=== PATIENT | female | born 1955 | race Caucasian/White ===

== ENCOUNTER 2019-12-15 04:39 | Emergency (ER) | payer MEDICARE ==
[2019-12-15 06:10] LABS: ABSOLUTE EOSINOPHILS # (AUTO) 0.1 10^3/uL (0.0-0.6); ABSOLUTE MONOCYTES (AUTO) 0.2 10^3/uL (0.1-1.4); ABSOLUTE NEUT (AUTO) 1.3 10^3/uL (1.7-8.2); BASOPHILS % (AUTO) 0.3 % (0-2); HEMATOCRIT 32.1 % (36.0-47.0); HEMOGLOBIN 10.9 g/dL (12.0-15.5); LYMPHOCYTES % (AUTO) 38.1 % (13-45); MEAN CORPUSCULAR HEMOGLOBIN 31.2 pg (27.0-33.4); MEAN CORPUSCULAR HGB CONC 34.1 g/dL (32.0-36.0); MEAN CORPUSCULAR VOLUME 91 fl (80-97); MONOCYTES % (AUTO) 7.6 % (3-13); RED BLOOD COUNT 3.51 10^6/uL (3.72-5.28); RED CELL DISTRIBUTION WIDTH 14.7 % (11.5-14.0); TOTAL CELLS COUNTED % (AUTO) 100 %; WHITE BLOOD COUNT 2.6 10^3/uL (4.0-10.5)
[2019-12-15 06:23] LABS: ALBUMIN 3.3 g/dL (3.5-5.0); ALKALINE PHOSPHATASE 133 U/L (38-126); ANION GAP 6 (5-19); ASPARTATE AMINO TRANSFERASE 37 U/L (14-36); BILIRUBIN,DIRECT 0.1 mg/dL (0.0-0.4); BILIRUBIN,TOTAL 1.4 mg/dL (0.2-1.3); BLOOD UREA NITROGEN 26 mg/dL (7-20); CALCIUM 9.7 mg/dL (8.4-10.2); CARBON DIOXIDE 23 mmol/L (22-30); CHLORIDE 110 mmol/L (98-107); GLUCOSE 79 mg/dL (75-110); POTASSIUM 4.1 mmol/L (3.6-5.0); TOTAL PROTEIN 6.2 g/dL (6.3-8.2)
[2019-12-15 06:25] LABS: ACETAMINOPHEN < 10 ug/mL (10-30); ALCOHOL < 10 mg/dL (NONE DETECTED); SALICYLATE < 1.0 mg/dL (2.0-20.0)
[2019-12-15 06:39] LABS: PLATELET COUNT 71 10^3/uL (150-450)
--- NOTE | 2019-12-15 07:01 | ER Document Report ---
ED General - General Chief Complaint: Psych Problem Stated Complaint: AUDITORY AND VISUAL HALLUCINATION Time Seen by Provider: 12/15/19 06:48 Mode of Arrival: Medic Information source: Patient TRAVEL OUTSIDE OF THE [place] IN LAST 30 DAYS: No - HPI Onset: Other - over the last few days Onset/Duration: Gradual Quality of pain: No pain Severity: Moderate Pain Level: 0 Associated symptoms: Other - auditory hallucinations tell her about and sex Exacerbated by: Denies Relieved by: Denies Similar symptoms previously: No Recently seen / treated by doctor: No Notes: 64 year old female with a history of Nonalcoholic Cirrhosis, HTN, HLD, DM, Asthma, CKD, Cirrhosis, GERD, Depression here in the ER for several days. The patient denies alcohol or drug use or head trauma. The patient has never had hallucinations before. The patient has a history of depression but otherwise she denies a psych history. - Related Data Allergies/Adverse Reactions: No Known Allergies Allergy (Verified 07/03/16 12:38) Home Medications: Klor-con 10mEq. Meclizine 25mg 2 pills twice a day. Gabapentin 300mg 2 pills twice a day. Verapamil Hcl 180mg. Atorvastatin 10mg. Lisinopril 10mg. Fluoxetine 40mg. Pantoprazole 40mg. Furosemide 20mg. Lantus 20 units Past Medical History - General Information source: Patient - Social History Smoking Status: Never Smoker Frequency of alcohol use: None Drug Abuse: None Lives with: Alone - but has a daughter around to help Family History: Reviewed & Not Pertinent Patient has suicidal ideation: No Patient has homicidal ideation: No - but voices are telling her to possibly be violent - Past Medical History Cardiac Medical History: Reports: Hx Hypercholesterolemia, Hx Hypertension Denies: Hx Coronary Artery Disease, Hx Heart Attack Pulmonary Medical History: Reports: Hx Asthma Denies: Hx Bronchitis, Hx COPD, Hx Pneumonia, Hx Tuberculosis Neurological Medical History: Denies: Hx Cerebrovascular Accident, Hx Seizures Endocrine Medical History: Reports: Hx Diabetes Mellitus Type 2 Renal/ Medical History: Reports: Hx End Stage Renal Disease GI Medical History: Reports: Hx Cirrhosis, Hx Gastroesophageal Reflux Disease Musculoskeletal Medical History: Reports Hx Arthritis Psychiatric Medical History: Reports: Hx Depression Past Surgical History: Reports: Hx Appendectomy, Hx Cholecystectomy - lap, Hx Hysterectomy. Denies: Hx Pacemaker - Immunizations Hx Diphtheria, Pertussis, Tetanus Vaccination: Yes Hx Pneumococcal Vaccination: 09/17/12 Review of Systems - Review of Systems Constitutional: No symptoms reported EENT: No symptoms reported Cardiovascular: No symptoms reported Respiratory: No symptoms reported Gastrointestinal: No symptoms reported Genitourinary: No symptoms reported Female Genitourinary: No symptoms reported Musculoskeletal: No symptoms reported Skin: No symptoms reported Hematologic/Lymphatic: No symptoms reported Neurological/Psychological: Hallucinations - auditory -: Yes All other systems reviewed and negative Physical Exam - Vital signs Vitals: Temp 97.9 F 12/15/19 04:40 - Notes Notes: GENERAL: Well-appearing, well-nourished and in no acute distress. HEAD: Atraumatic, normocephalic. EYES: Pupils equal round and reactive to light, extraocular movements intact, sclera anicteric, conjunctiva are normal. ENT: External ears normal, nares patent, oropharynx clear without exudates. Moist mucous membranes. NECK: Normal range of motion, supple without lymphadenopathy or JVD. LUNGS: Breath sounds clear to auscultation bilaterally and equal. No wheezes rales or rhonchi. HEART: Regular rate and rhythm without murmurs, rubs or gallops. ABDOMEN: Soft, nontender, normoactive bowel sounds. No guarding, no rebound. No masses appreciated. EXTREMITIES: Normal range of motion, no pitting or edema. No clubbing or cyanosis. NEUROLOGICAL: Cranial nerves II through XII grossly intact. Normal speech, normal gait. PSYCH: Normal mood, normal affect. SKIN: Warm, Dry, normal turgor, no rashes or lesions noted. Course - Re-evaluation Re-evalutation: 12/15/19 09:41 The patient has been having auditory hallucinations. Patient has known liver disease and her Ammonia level is in the 70s today. Patient also has a possible mild UTI which could be contributing. Will culture urine but treat with 5 days of Macrobid. I called the patient's daughter and explained to her that the patient's hallucinations are likely due to hepatic encephalopthy and a mild UTI could also be contributing. Patient already has lactulose at home accoridng to her daughter. Patient's daughter told to have patient follow up with her PCP. The patient has a metabolic reason to be hallucinating some so no need for psych consult today. - Vital Signs Vital signs: Temp Pulse Resp BP Pulse Ox 97.8 F 70 20 118/64 96 12/15/19 08:39 12/15/19 08:39 12/15/19 08:39 12/15/19 08:39 12/15/19 08:39 - Laboratory Result Diagrams: 12/15/19 05:35 12/15/19 05:47 Laboratory results interpreted by me: 12/15/19 12/15/19 12/15/19 05:35 05:47 07:25 WBC 2.6 L RBC 3.51 L Hgb 10.9 L Hct 32.1 L RDW 14.7 H Plt Count 71 L Absolute Neuts (auto) 1.3 L Chloride 110 H BUN 26 H Creatinine 1.81 H Est GFR ( Amer) 34 L Est GFR (MDRD) Non-Af 28 L Total Bilirubin 1.4 H AST 37 H Alkaline Phosphatase 133 H Ammonia 70.1 H Total Protein 6.2 L Albumin 3.3 L Urine Urobilinogen Salicylates < 1.0 L Acetaminophen < 10 L 12/15/19 07:50 WBC RBC Hgb Hct RDW Plt Count Absolute Neuts (auto) Chloride BUN Creatinine Est GFR ( Amer) Est GFR (MDRD) Non-Af Total Bilirubin AST Alkaline Phosphatase Ammonia Total Protein Albumin Urine Urobilinogen 4.0 H Salicylates Acetaminophen - Diagnostic Test Radiology reviewed: Image reviewed, Reports reviewed - EKG Interpretation by Me EKG shows normal: Sinus rhythm, Intervals, QRS Complexes, ST-T Waves Rate: Normal Rhythm: NSR [place]/QRS: Left axis deviation Discharge - Discharge Clinical Impression: Hepatic encephalopathy UTI (urinary tract infection) Qualifiers: Urinary tract infection type: site unspecified Hematuria presence: without hematuria Qualified Code(s): N39.0 - Urinary tract infection, site not specified Condition: Stable Disposition: HOME, SELF-CARE Instructions: Urinary Tract Infection ([facility]), Hepatic Encephalopathy ([facility]) Additional Instructions: Take Lactulose several times a day until you have a couple formed bowel movements a day. Also take Macrobid as prescribed for a possible UTI. Follow up with your primary care doctor and tell him/her you were in the ER and had blood work an a CT scan. Your Ammonia level was elevated at 70.1. Prescriptions: Nitrofurantoin Monohyd/M-Cryst [Macrobid 100 mg Capsule] 100 mg PO BID 5 Days #10 cap
--- NOTE | 2019-12-15 07:26 | RADIOLOGY REPORT (SQ) ---
CLINICAL HISTORY: eval for cause of hallucinations and AMS COMPARISON: None. TECHNIQUE: CT HEAD WITHOUT IV CONTRAST on 12/15/2019 6:54 AM CDT This exam was performed according to our departmental dose-optimization program, which includes automated exposure control, adjustment of the mA and/or kV according to patient size and/or use of iterative reconstruction technique. FINDINGS: There is no acute hemorrhage, mass effect or midline shift. Bustos-white differentiation is preserved. There is no hydrocephalus. There is no significant volume loss for age. There are mild patchy hypodensities within the periventricular and subcortical white matter, consistent with microangiopathic ischemic changes. The calvarium is intact. Orbits and globes are unremarkable. The paranasal sinuses are clear. Mastoid air cells are clear. IMPRESSION: No acute intracranial findings.
[2019-12-15 08:11] LABS: APPEARANCE,URINE CLEAR; BILIRUBIN,URINE NEGATIVE (NEGATIVE); COLOR,URINE YELLOW; GLUCOSE, URINE NEGATIVE (NEGATIVE); KETONES,URINE NEGATIVE (NEGATIVE); LEUKOCYTE ESTERASE,URINE NEGATIVE (NEGATIVE); NITRITE,URINE NEGATIVE (NEGATIVE); PROTEIN,URINE NEGATIVE (NEGATIVE); URINE SPECIFIC GRAVITY 1.016
[2019-12-15 08:20] LABS: ADD MANUAL MICROSCOPIC YES
[2019-12-15 08:33] LABS: BACTERIA,URINE 4+ /HPF
[2019-12-15 08:48] LABS: URINE AMPHETAMINES SCREEN NEGATIVE; URINE BARBITURATES SCREEN NEGATIVE; URINE BENZODIAZEPINES SCREEN NEGATIVE; URINE COCAINE SCREEN NEGATIVE; URINE MARIJUANA (THC) SCREEN NEGATIVE; URINE METHADONE SCREEN NEGATIVE; URINE PHENCYCLIDINE SCREEN NEGATIVE
[2019-12-15 11:07] VITALS: BP 110/41
--- NOTE | 2019-12-15 11:11 | EKG REPORT ---
SEVERITY:- BORDERLINE ECG - SINUS RHYTHM BORDERLINE LEFT AXIS DEVIATION BORDERLINE T ABNORMALITIES, ANT-LAT LEADS : Confirmed by: Lawanda Garber MD 15-Dec-2019 11:10:41
== END 2019-12-15 11:07 | disposition home or self-care (01) ==
LOC: ER 04:39
DX: K72.90 Hepatic failure, unspecified without coma (principal); N39.0 Urinary tract infection, site not specified; R44.0 Auditory hallucinations; R44.1 Visual hallucinations; Z79.899 Other long term (current) drug therapy; Z79.84 Long term (current) use of oral hypoglycemic drugs; F32.9 Major depressive disorder, single episode, unspecified; I12.9 Hypertensive chronic kidney disease with stage 1 through stage 4 chronic kidney disease, or unspecified chronic kidney disease; E11.22 Type 2 diabetes mellitus with diabetic chronic kidney disease; N18.9 Chronic kidney disease, unspecified; J45.909 Unspecified asthma, uncomplicated
CPT/HCPCS: 36415; 70450; 80053; 80307; 81001; 82140; 82962; 84443; 85025; 93005; 93010; 99285

== ENCOUNTER 2019-12-15 22:45 | Inpatient (IN) | payer MEDICARE, OTHER ==
--- NOTE | 2019-12-16 01:22 | ER Document Report ---
ED General - General Chief Complaint: Fall Stated Complaint: FALL Time Seen by Provider: 12/15/19 23:35 Notes: 64 year old female with h/o dm and cirrhosis lives at home with some grand daughter support and is back after being here this am. She has known ecephalopathy - hepatic - and a uti this am. After getting home her mental status is not improved, it has worsened. She reportedly - per daughter - thru herself out of the chair she was in this evening afraid someone was afterward. No fever or chills. Moved here from [place] a few months ago and just established care with [facility] recently. No chest pain and no sob. TRAVEL OUTSIDE OF THE [place] IN LAST 30 DAYS: No - Related Data Allergies/Adverse Reactions: No Known Allergies Allergy (Verified 07/03/16 12:38) Past Medical History - Social History Smoking Status: Unknown if Ever Smoked Family History: Reviewed & Not Pertinent Patient has homicidal ideation: No - Past Medical History Cardiac Medical History: Reports: Hx Hypercholesterolemia, Hx Hypertension Denies: Hx Coronary Artery Disease, Hx Heart Attack Pulmonary Medical History: Reports: Hx Asthma Denies: Hx Bronchitis, Hx COPD, Hx Pneumonia, Hx Tuberculosis Neurological Medical History: Denies: Hx Cerebrovascular Accident, Hx Seizures Endocrine Medical History: Reports: Hx Diabetes Mellitus Type 2 Renal/ Medical History: Reports: Hx End Stage Renal Disease GI Medical History: Reports: Hx Cirrhosis, Hx Gastroesophageal Reflux Disease Musculoskeletal Medical History: Reports Hx Arthritis Psychiatric Medical History: Reports: Hx Depression Past Surgical History: Reports: Hx Appendectomy, Hx Cholecystectomy - lap, Hx Hysterectomy. Denies: Hx Pacemaker - Immunizations Hx Diphtheria, Pertussis, Tetanus Vaccination: Yes Hx Pneumococcal Vaccination: 09/17/12 Review of Systems - Review of Systems Constitutional: No symptoms reported EENT: No symptoms reported Cardiovascular: No symptoms reported Respiratory: No symptoms reported Gastrointestinal: No symptoms reported Genitourinary: No symptoms reported Female Genitourinary: No symptoms reported Musculoskeletal: No symptoms reported Skin: No symptoms reported Hematologic/Lymphatic: No symptoms reported Neurological/Psychological: No symptoms reported Physical Exam - Vital signs Vitals: Temp 98.3 F 12/15/19 22:45 Interpretation: Normal - General General appearance: Appears well, Alert - HEENT Head: Normocephalic, Other - very small abrasion lateral to left lateral canthus. No sts. Approximatley 1-2 cm.. No: Atraumatic Eyes: Normal Pupils: PERRL - Respiratory Respiratory status: No respiratory distress Chest status: Nontender Breath sounds: Normal Chest palpation: Normal - Cardiovascular Rhythm: Regular Heart sounds: Normal auscultation Murmur: No - Abdominal Inspection: Normal Distension: No distension Bowel sounds: Normal Tenderness: Nontender Organomegaly: No organomegaly - Back Back: Normal, Nontender - Extremities General upper extremity: Normal inspection, Nontender, Normal color, Normal ROM, Normal temperature General lower extremity: Normal inspection, Nontender, Normal color, Normal ROM, Normal temperature, Normal weight bearing. No: Dominique's sign - Neurological Neuro grossly intact: Yes Cognition: Normal Orientation: AAOx4 [place] Coma Scale Eye Opening: Spontaneous [place] Coma Scale Verbal: Oriented [place] Coma Scale Motor: Obeys Commands [place] Coma Scale Total: 15 Speech: Normal Motor strength normal: LUE, RUE, LLE, RLE Sensory: Normal - Psychological Associated symptoms: Normal affect, Normal mood - Skin Skin Temperature: Warm Skin Moisture: Dry Skin Color: Normal Course - Vital Signs Vital signs: Temp Pulse Resp BP Pulse Ox 98.3 F 15 109/87 H 91 L 12/15/19 22:45 12/16/19 00:15 12/16/19 00:01 12/16/19 00:15 - Laboratory Result Diagrams: 12/15/19 22:52 12/15/19 22:52 Laboratory results interpreted by me: 12/15/19 12/15/19 22:52 22:52 Hct 35.7 L RDW 14.9 H Plt Count 99 L Chloride 110 H Carbon Dioxide 21 L BUN 24 H Creatinine 1.78 H Est GFR ( Amer) 35 L Est GFR (MDRD) Non-Af 29 L Glucose 115 H Total Bilirubin 1.7 H AST 48 H Alkaline Phosphatase 173 H Discharge - Discharge Clinical Impression: Hepatic encephalopathy, Thrombocytopenia UTI (urinary tract infection) Qualifiers: Urinary tract infection type: site unspecified Hematuria presence: with hematuria Qualified Code(s): N39.0 - Urinary tract infection, site not specified Condition: Stable Disposition: ADMITTED OBSERVATION Admitting Provider: Janusz (Hospitalist) Unit Admitted: Medical Floor
[2019-12-16] MEDS ORDERED: LACTULOSE SYRUP 20 GM/30 ML UDCUP PO ONE (01:24)
[2019-12-16] MEDS ORDERED: CEFTRIAXONE 1 GM/D5W RTU 1 GM/50 ML RTUPB IV ONE (01:29)
[2019-12-16 01:42] LABS: ABSOLUTE EOSINOPHILS # (AUTO) 0.1 10^3/uL (0.0-0.6); ABSOLUTE LYMPHOCYTES (AUTO) 1.3 10^3/uL (0.5-4.7); ABSOLUTE MONOCYTES (AUTO) 0.3 10^3/uL (0.1-1.4); ABSOLUTE NEUT (AUTO) 2.2 10^3/uL (1.7-8.2); BASOPHILS % (AUTO) 0.7 % (0-2); EOSINOPHILS % (AUTO) 2.7 % (0-6); HEMATOCRIT 35.7 % (36.0-47.0); HEMOGLOBIN 12.1 g/dL (12.0-15.5); LYMPHOCYTES % (AUTO) 33.8 % (13-45); MEAN CORPUSCULAR HEMOGLOBIN 31.2 pg (27.0-33.4); MEAN CORPUSCULAR HGB CONC 33.8 g/dL (32.0-36.0); MEAN CORPUSCULAR VOLUME 92 fl (80-97); MONOCYTES % (AUTO) 6.6 % (3-13); RED BLOOD COUNT 3.87 10^6/uL (3.72-5.28); RED CELL DISTRIBUTION WIDTH 14.9 % (11.5-14.0); SEGMENTED NEUTROPHILS % (AUTO) 56.2 % (42-78); TOTAL CELLS COUNTED % (AUTO) 100 %
[2019-12-16 01:45] LABS: ALBUMIN 3.8 g/dL (3.5-5.0); ALKALINE PHOSPHATASE 173 U/L (38-126); ANION GAP 8 (5-19); ASPARTATE AMINO TRANSFERASE 48 U/L (14-36); BILIRUBIN,DIRECT 0.4 mg/dL (0.0-0.4); BILIRUBIN,TOTAL 1.7 mg/dL (0.2-1.3); BLOOD UREA NITROGEN 24 mg/dL (7-20); CALCIUM 10.1 mg/dL (8.4-10.2); CARBON DIOXIDE 21 mmol/L (22-30); CHLORIDE 110 mmol/L (98-107); GLUCOSE 115 mg/dL (75-110); POTASSIUM 3.9 mmol/L (3.6-5.0)
[2019-12-16 02:00] LABS: PLATELET COUNT 99 10^3/uL (150-450)
--- NOTE | 2019-12-16 03:58 | RADIOLOGY REPORT (SQ) ---
EXAM DESCRIPTION: CT LUMBAR SPINE WITHOUT IV CONTRAST COMPLETED DATE/TME: 12/16/2019 01:14 CLINICAL HISTORY: 64 years, Female, fall/ pain.states that she was sitting in her chair and slid out of chair COMPARISON: CT abdomen/pelvis from 07/03/2016 TECHNIQUE: 337 Images stored on PACS. All CT scanners at this facility use dose modulation, iterative reconstruction, and/or weight based dosing when appropriate to reduce radiation dose to as low as reasonably achievable (ALARA). [facility]: Dose Right [facility]: CareDose [facility]: Dose Right [facility]: Teradose 4D [facility]: Companion Canine LIMITATIONS: None. FINDINGS: Evaluation of spinal canal contents limited due to CT technique. 5 lumbar type vertebral bodies, for the purposes of this exam. Age-indeterminate compression fractures of L5, L3, L2, L1, T12, T11. Maximum loss of height is associated with the central L3 vertebral body, where there is approximately 60-70% loss of height. No CT evidence for retropulsed fracture fragment. Limited evaluation of extraspinal anatomic structures is grossly unremarkable. The compression fracture deformities are new from Nov [address] evidence for central canal stenosis. Pars defects at the L5-S1 level without spondylolisthesis. Facet arthropathy L4-5 and L5-S1. Vacuum disc phenomenon at multiple levels. IMPRESSION: Age-indeterminate compression fractures of T11, T12, L1, L2, L3, L5. No retropulsed fracture fragment or CT evidence for significant central canal stenosis. 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 TECHNICAL DOCUMENTATION: Quality ID # 436: Final reports with documentation of one or more dose reduction techniques (e.g., Automated exposure control, adjustment of the mA and/or kV according to patient size, use of iterative reconstruction technique) copyright 2010 [employer]- All Rights Reserved
[2019-12-16] MEDS ORDERED: MAG HYDROX/AL HYDROX/SIMETH SUSP 30 ML UDCUP PO PRN (04:08)
[2019-12-16] MEDS ORDERED: IPRATROPIUM/ALBUTEROL 0.5-2.5 MG/3 ML AMPUL NEB PRN (04:08)
[2019-12-16] MEDS ORDERED: GLUCAGON,HUMAN RECOMB 1 MG INJ IM PRN (04:08)
[2019-12-16] MEDS ORDERED: DEXTROSE 40% GEL 15 GM TUBE PO PRN ×2 (04:08)
[2019-12-16] MEDS ORDERED: DEXTROSE 50%-WATER 25 GM/50 ML DISP.SYRIN IV PRN ×2 (04:08)
[2019-12-16] MEDS ORDERED: NORMAL SALINE 1000 ML 1,000 ML IV PRN (04:15)
[2019-12-16 04:42] LABS: APPEARANCE,URINE CLEAR; BILIRUBIN,URINE NEGATIVE (NEGATIVE); COLOR,URINE YELLOW; GLUCOSE, URINE NEGATIVE (NEGATIVE); KETONES,URINE NEGATIVE (NEGATIVE); LEUKOCYTE ESTERASE,URINE NEGATIVE (NEGATIVE); NITRITE,URINE NEGATIVE (NEGATIVE); PROTEIN,URINE NEGATIVE (NEGATIVE); URINE SPECIFIC GRAVITY 1.011
[2019-12-16 04:57] LABS: PHOSPHORUS 3.1 mg/dL (2.5-4.5)
[2019-12-16] MEDS: HEPARIN SOD (PORCINE) 5,000 UNIT/ML 1 ML VIAL SUBCUT SCH ×3 (06:12→23:27)
--- NOTE | 2019-12-16 06:22 | PDOC H&P ---
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 She presents with 48 hours of confusion including hallucinations and delusion of persecution. She threw herself from her chair to the floor in an attempt to escape perceived capture. In the emergency department she is found to have persistent confusion and delusion, thrombocytopenia and CKD at baseline. She received lactulose and referred to the hospitalist for admission. She is a poor historian unable to provide additional history. CT lumbar spine notable for several compression fractures of uncertain chronicity however patient denies back pain. Past Medical History Cardiac Medical History: Reports: Hyperlipidema, Hypertension Denies: Coronary Artery Disease, Myocardial Infarction Pulmonary Medical History: Reports: Asthma Denies: Bronchitis, Chronic Obstructive Pulmonary Disease (COPD), Pneumonia, Tuberculosis Neurological Medical History: Denies: Seizures Endocrine Medical History: Reports: Diabetes Mellitus Type 2 Renal/ Medical History: Reports: End Stage Renal Disease GI Medical History: Reports: Cirrhosis, Gastroesophageal Reflux Disease Musculoskeltal Medical History: Reports: Arthritis Psychiatric Medical History: Reports: Depression Hematology: Denies: Anemia Past Surgical History Past Surgical History: Reports: Appendectomy, Cholecystectomy - lap, Hysterectomy Denies: Pacemaker Social History Information Source: Emergency Med Personnel, [facility] Records Lives with: Family Smoking Status: Unknown if Ever Smoked Frequency of Alcohol Use: None Hx Recreational Drug Use: No Drugs: None Hx Prescription Drug Abuse: No - Advance Directive Resuscitation Status: Full Code Family History Family History: Other - Unobtainable. denies: Reviewed & Not Pertinent - Unobtainable Parental Family History Reviewed: No - Unobtainable Children Family History Reviewed: No - Unobtainable Sibling(s) Family History Reviewed.: No - Unobtainable Medication/Allergy Home Medications: Atorvastatin Calcium [Lipitor 10 mg Tablet] 10 mg PO QHS 12/15/19 Fluoxetine HCl 40 mg PO DAILY 12/15/19 Furosemide [Lasix] 20 mg PO DAILY 12/15/19 Gabapentin 600 mg PO BID 12/15/19 Insulin Glargine,Hum.rec.anlog [Lantus Insulin 100 Unit/mL Insulin Pen] 70 units SUBCUT QHS 12/15/19 Lisinopril [Prinivil] 10 mg PO DAILY 12/15/19 Meclizine HCl 50 mg PO BID 12/15/19 Nitrofurantoin Monohyd/M-Cryst [Macrobid 100 mg Capsule] 100 mg PO BID 5 Days # 10 cap 12/15/19 Pantoprazole Sodium 40 mg PO DAILY 12/15/19 Potassium Chloride [Klor-Con 10 Meq Tablet ER] 10 meq PO DAILY 12/15/19 Tolterodine Tartrate [Detrol] 2 mg PO DAILY 12/15/19 Verapamil HCl [Verapamil ER] 180 mg PO DAILY 12/15/19 Allergies/Adverse Reactions: No Known Allergies Allergy (Verified 07/03/16 12:38) Review of Systems ROS unobtainable: Due to mental status Physical Exam Vital Signs: Temp Pulse Resp BP Pulse Ox 98.3 F 19 105/59 L 93 12/15/19 22:45 12/16/19 05:04 12/16/19 05:04 12/16/19 05:04 Intake & Output 12/14/19 12/15/19 12/16/19 11:59 11:59 11:59 Intake Total 50 Balance 50 Weight 102.3 kg General appearance: PRESENT: cooperative, disheveled, mild distress, morbidly obese Head exam: PRESENT: atraumatic, normocephalic Eye exam: PRESENT: conjunctiva pink, EOMI, PERRLA. ABSENT: scleral icterus Ear exam: PRESENT: normal external ear exam Mouth exam: PRESENT: moist, tongue midline Neck exam: ABSENT: carotid bruit, JVD, lymphadenopathy, thyromegaly Respiratory exam: PRESENT: clear to auscultation sandra. ABSENT: rales, rhonchi, wheezes Cardiovascular exam: PRESENT: RRR. ABSENT: diastolic murmur, rubs, systolic murmur Pulses: PRESENT: normal dorsalis pedis pul Vascular exam: PRESENT: normal capillary refill GI/Abdominal exam: PRESENT: ascites, diminished bowel sounds, hypoactive bowel sounds, soft. ABSENT: distended, firm, tenderness Rectal exam: PRESENT: deferred Extremities exam: PRESENT: full ROM. ABSENT: calf tenderness, clubbing, pedal edema Neurological exam: PRESENT: alert, altered, oriented to person, CN II-XII grossly intact. ABSENT: oriented to time, oriented to situation Psychiatric exam: PRESENT: anxious, unusual affect. ABSENT: appropriate affect Skin exam: PRESENT: dry, intact, warm. ABSENT: cyanosis, rash Results Laboratory Results: 12/15/19 22:52 12/15/19 22:52 12/15/19 12/15/19 12/16/19 22:52 22:52 03:18 WBC 4.0 RBC 3.87 Hgb 12.1 Hct 35.7 L MCV 92 MCH 31.2 MCHC 33.8 RDW 14.9 H Plt Count 99 L Seg Neutrophils % 56.2 Sodium 138.7 Potassium 3.9 Chloride 110 H Carbon Dioxide 21 L Anion Gap 8 BUN 24 H Creatinine 1.78 H Est GFR ( Amer) 35 L Glucose 115 H Calcium 10.1 Phosphorus Magnesium Total Bilirubin 1.7 H AST 48 H Alkaline Phosphatase 173 H Ammonia 39.2 H Total Protein 7.0 Albumin 3.8 TSH Urine Color Urine Appearance Urine pH Ur Specific [place] Urine Protein Urine Glucose (UA) Urine Ketones Urine Blood Urine Nitrite Ur Leukocyte Esterase Urine WBC (Auto) Urine RBC (Auto) 12/16/19 12/16/19 12/16/19 04:10 04:25 04:25 WBC RBC Hgb Hct MCV MCH MCHC RDW Plt Count Seg Neutrophils % Sodium Potassium Chloride Carbon Dioxide Anion Gap BUN Creatinine Est GFR ( Amer) Glucose Calcium Phosphorus 3.1 Magnesium 1.9 Total Bilirubin AST Alkaline Phosphatase Ammonia Total Protein Albumin TSH 1.43 Urine Color YELLOW Urine Appearance CLEAR Urine pH 5.0 Ur Specific [place] 1.011 Urine Protein NEGATIVE Urine Glucose (UA) NEGATIVE Urine Ketones NEGATIVE Urine Blood NEGATIVE Urine Nitrite NEGATIVE Ur Leukocyte Esterase NEGATIVE Urine WBC (Auto) 0 Urine RBC (Auto) 0 12/16/19 12/16/19 04:25 04:25 Creatine Kinase 35 Troponin I 0.015 Impressions: Lumbar Spine CT 12/16/19 01:14 IMPRESSION: Age-indeterminate compression fractures of T11, T12, L1, L2, L3, L5. No retropulsed fracture fragment or CT evidence for significant central canal stenosis. 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 TECHNICAL DOCUMENTATION: Quality ID # 436: Final reports with documentation of one or more dose reduction techniques (e.g., Automated exposure control, adjustment of the mA and/or kV according to patient size, use of iterative reconstruction technique) copyright 2011 [employer]- All Rights Reserved Assessment and Plan - Diagnosis (1) Hepatic encephalopathy Is this a current diagnosis for this admission?: Yes Plan: Lactulose 10 mg p.o. every 8 hours. Supportive measures. Discharge planning is likely unable to return to independent setting. (2) Thrombocytopenia Is this a current diagnosis for this admission?: Yes Plan: Anticipated secondary to Reeves and without complication, supportive care - Time Time Spent with patient: 25-34 minutes - Inpatient Certification Medical Necessity: Need Close Monitoring Due to Risk of Patient Decompensation
[2019-12-16] MEDS: INSULIN LISPRO 100 UNIT/ML 3 ML VIAL SUBCUT SCH ×3 (09:04→17:45)
[2019-12-16] MEDS ORDERED: INSULIN GLARGINE,HUM.REC.ANLOG 1,000 UNIT/10 ML VIAL SUBCUT SCH ×2 (10:00→12:00)
[2019-12-16] MEDS: DOCUSATE SODIUM 100 MG CAPSULE PO SCH ×2 (11:04→17:42)
[2019-12-16] MEDS: LACTULOSE SYRUP 20 GM/30 ML UDCUP PO SCH ×4 (11:04→23:26)
--- NOTE | 2019-12-16 19:12 | Progress Note ---
Provider Note Provider Note: 12/16/2019 [Patient currently. She is tired. She was up most of the evening. She was admitted earlier this morning. I did review the medication reconciliation. Some of her antihypertensive medications are on hold due to borderline blood pressure. The lactulose is helping. Repeat labs ordered for tomorrow.
[2019-12-16] MEDS: ATORVASTATIN CALCIUM 10 MG TABLET PO SCH (23:27)
[2019-12-16] MEDS: GABAPENTIN 300 MG CAPSULE PO SCH (23:27)
[2019-12-17] MEDS: PANTOPRAZOLE SODIUM 40 MG TABLET.DR PO SCH (06:01)
[2019-12-17] MEDS: HEPARIN SOD (PORCINE) 5,000 UNIT/ML 1 ML VIAL SUBCUT SCH (06:01)
[2019-12-17] MEDS: INSULIN LISPRO 100 UNIT/ML 3 ML VIAL SUBCUT SCH ×3 (07:00→17:39)
[2019-12-17 07:24] LABS: BLOOD UREA NITROGEN 21 mg/dL (7-20); CALCIUM 9.2 mg/dL (8.4-10.2); CHLORIDE 114 mmol/L (98-107); POTASSIUM 3.5 mmol/L (3.6-5.0)
[2019-12-17 07:28] LABS: GLUCOSE 48 mg/dL (75-110)
[2019-12-17 07:30] LABS: CARBON DIOXIDE 22 mmol/L (22-30)
[2019-12-17 07:32] LABS: ANION GAP 4 (5-19)
[2019-12-17] MEDS ORDERED: POTASSIUM CHLORIDE 10 MEQ TABLET.ER PO SCH (10:00)
[2019-12-17] MEDS ORDERED: INSULIN GLARGINE,HUM.REC.ANLOG 1,000 UNIT/10 ML VIAL SUBCUT SCH (10:00)
[2019-12-17 10:14] LABS: ABSOLUTE EOSINOPHILS # (AUTO) 0.1 10^3/uL (0.0-0.6); ABSOLUTE MONOCYTES (AUTO) 0.2 10^3/uL (0.1-1.4); ABSOLUTE NEUT (AUTO) 1.2 10^3/uL (1.7-8.2); BASOPHILS % (AUTO) 0.5 % (0-2); EOSINOPHILS % (AUTO) 2.1 % (0-6); HEMATOCRIT 30.4 % (36.0-47.0); HEMOGLOBIN 10.1 g/dL (12.0-15.5); LYMPHOCYTES % (AUTO) 41.3 % (13-45); MEAN CORPUSCULAR HEMOGLOBIN 31.1 pg (27.0-33.4); MEAN CORPUSCULAR HGB CONC 33.4 g/dL (32.0-36.0); MEAN CORPUSCULAR VOLUME 93 fl (80-97); MONOCYTES % (AUTO) 6.8 % (3-13); RED BLOOD COUNT 3.26 10^6/uL (3.72-5.28); RED CELL DISTRIBUTION WIDTH 14.5 % (11.5-14.0); SEGMENTED NEUTROPHILS % (AUTO) 49.3 % (42-78); TOTAL CELLS COUNTED % (AUTO) 100 %
[2019-12-17] MEDS: DOCUSATE SODIUM 100 MG CAPSULE PO SCH ×2 (10:18→17:46)
[2019-12-17] MEDS: GABAPENTIN 300 MG CAPSULE PO SCH ×2 (10:21→22:06)
[2019-12-17] MEDS: LACTULOSE SYRUP 20 GM/30 ML UDCUP PO SCH ×2 (10:21→17:46)
[2019-12-17] MEDS: FUROSEMIDE 20 MG TABLET PO SCH (10:21)
[2019-12-17] MEDS: FLUOXETINE HCL 20 MG CAPSULE PO SCH (10:21)
[2019-12-17] MEDS: VERAPAMIL HCL 180 MG TABLET.SA PO SCH (10:22)
[2019-12-17] MEDS: TOLTERODINE TARTRATE 1 MG TABLET PO SCH (10:22)
[2019-12-17 10:38] LABS: PLATELET COUNT 66 10^3/uL (150-450); WHITE BLOOD COUNT 2.5 10^3/uL (4.0-10.5)
--- NOTE | 2019-12-17 11:39 | PDOC PROGRESS REPORT ---
Subjective Progress Note for:: 12/17/19 Subjective:: Feeling slightly better. Complaining of right great toe pain. Also having frequent bowel movements due to lactulose. Reason For Visit: ENCEPHALOPATHY Physical Exam Vital Signs: Temp Pulse Resp BP Pulse Ox 98.2 F 70 18 110/36 L 95 12/17/19 07:32 12/17/19 07:32 12/17/19 07:32 12/17/19 07:32 12/17/19 07:32 Intake & Output 12/16/19 12/17/19 12/18/19 06:59 06:59 06:59 Intake Total 50 480 Output Total 0 Balance 50 480 Weight 102.3 kg 85.7 kg General appearance: PRESENT: cooperative, well-developed Head exam: PRESENT: atraumatic, normocephalic Eye exam: PRESENT: conjunctiva pink. ABSENT: scleral icterus Ear exam: PRESENT: normal external ear exam. ABSENT: bleeding, drainage Respiratory exam: PRESENT: clear to auscultation sandra, symmetrical, unlabored. ABSENT: prolonged expiratory phas, rales, rhonchi, tachypnea, wheezes Cardiovascular exam: PRESENT: RRR, +S1, +S2 GI/Abdominal exam: PRESENT: diminished bowel sounds, soft, other - Pendulous a bdomen. ABSENT: distended, guarding, tenderness Rectal exam: PRESENT: deferred Extremities exam: ABSENT: pedal edema Musculoskeletal exam: PRESENT: other - Examination of the right great toe reveals slight bunion. It is not tender in the metatarsal phalangeal joint. There is no tenderness under the metatarsal head or along the lateral aspect or dorsal aspect of the foot. Tenderness is at the tip of the toe. The toenail is ingrowing slightly medially. There is no purulent drainage. There is slight erythema. Neurological exam: PRESENT: alert, awake, oriented to person, oriented to place, oriented to situation Psychiatric exam: PRESENT: flat affect. ABSENT: agitated, anxious Results Laboratory Results: 12/17/19 09:06 12/17/19 06:30 12/17/19 12/17/19 12/17/19 06:30 06:30 06:30 WBC Cancelled RBC Cancelled Hgb Cancelled Hct Cancelled MCV Cancelled MCH Cancelled MCHC Cancelled RDW Cancelled Plt Count Cancelled Seg Neutrophils % Cancelled Sodium 139.9 Potassium 3.5 L Chloride 114 H Carbon Dioxide 22 Anion Gap 4 L BUN 21 H Creatinine 1.49 H Est GFR ( Amer) 42 L Glucose 48 L Calcium 9.2 Magnesium 1.9 Ammonia 18.1 12/17/19 09:06 WBC 2.5 L D RBC 3.26 L Hgb 10.1 L Hct 30.4 L MCV 93 MCH 31.1 MCHC 33.4 RDW 14.5 H Plt Count 66 L Seg Neutrophils % 49.3 Sodium Potassium Chloride Carbon Dioxide Anion Gap BUN Creatinine Est GFR ( Amer) Glucose Calcium Magnesium Ammonia 12/16/19 01:53 Blood Blood Culture (PCR) - Final Staphylococcus Species 12/16/19 12/16/19 12/16/19 04:25 04:25 11:19 Creatine Kinase 35 Troponin I 0.015 < 0.012 12/16/19 16:30 Creatine Kinase Troponin I < 0.012 Impressions: Lumbar Spine CT 12/16/19 01:14 IMPRESSION: Age-indeterminate compression fractures of T11, T12, L1, L2, L3, L5. No retropulsed fracture fragment or CT evidence for significant central canal stenosis. 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 TECHNICAL DOCUMENTATION: Quality ID # 436: Final reports with documentation of one or more dose reduction techniques (e.g., Automated exposure control, adjustment of the mA and/or kV according to patient size, use of iterative reconstruction technique) copyright 2011 [employer]- All Rights Reserved Assessment and Plan - Diagnosis (1) Hepatic encephalopathy Is this a current diagnosis for this admission?: Yes Plan: Lactulose 10 mg p.o. every 8 hours. Supportive measures. Discharge planning is likely unable to return to independent setting. 12/17/2019 Ammonia level is down to 18. We will decrease the lactulose but not discontinue altogether. (2) Hypoglycemia associated with type 2 diabetes mellitus Is this a current diagnosis for this admission?: Yes Plan: 12/17/2019 On her listed home doses of insulin she is very hyperglycemic. This could be because she is not eating much. I have markedly decreased her Lantus 20 He told family will Continue Accu-Cheks and sliding scale. Continue to monitor closely. Hypoglycemic protocol is in place. (3) Hypokalemia Is this a current diagnosis for this admission?: Yes Plan: 12/17/2019 Potassium is 3.5. I will administer 20 mEq IV and increase her oral dose to 20 mEq. Continue to monitor serum potassium levels. (4) Thrombocytopenia Is this a current diagnosis for this admission?: Yes Plan: Anticipated secondary to Heredia and without complication, supportive care 12/17/2019 Platelet count has dropped. I have discontinued the DVT prophylaxis dose of heparin. Monitor platelets. (5) Leukopenia Qualifiers: Leukopenia type: neutropenia Is this a current diagnosis for this admission?: Yes Plan: 12/17/2019 The white blood cell count dropped. The patient is on ceftriaxone. We will monitor it closely. It could be the patient's initial response to infection. One blood culture bottle has coagulase-negative staph. (6) Ingrown toenail of right foot Is this a current diagnosis for this admission?: Yes Plan: 12/17/2019 This is likely causing the tenderness in the toe. There is no purulent discharge. It is not markedly swollen or red. Application of topical antibiotic ointment will likely soften the skin at the nail and she can address this as an outpatient. (7) Chronic renal failure, stage 3 (moderate) Is this a current diagnosis for this admission?: Yes Plan: 12/17/2019 Reviewing previous blood work it appears that the patient is at her baseline. Will decrease IV fluids. Will monitor renal function regularly. (8) Nonalcoholic steatohepatitis (HEREDIA) Is this a current diagnosis for this admission?: Yes Plan: 12/17/2019 Supportive care at this point. (9) Abnormal gait Is this a current diagnosis for this admission?: Yes Plan: 12/17/2019 Evidently the patient has had falls. The most recent apparently was her throwing herself out of the wheelchair. I have asked physical therapy to evaluate the patient. - Time Time Spent with patient: 15-24 minutes Medications reviewed and adjusted accordingly: Yes
[2019-12-17] MEDS ORDERED: POTASSI CL 20 MEQ/50 ML RIDER 20 MEQ/50 ML RTUPB IV ONE (12:00)
--- NOTE | 2019-12-17 14:13 | CDI QUERY ---
CDI Query CDI Review: Dear Provider: To better reflect your patients severity of illness, morbidity, and resource utilization Please specify and document in the Progress Notes and Discharge Summary if you are monitoring / treating / evaluating any of the following conditions: Query Clinical indicators Based on your medical judgement, can you further clarify in your Progress Notes the diagnosis related to these findings: Pancytopenia due to HEREDIA Pancytopenia due to another disease process (please specify) Pancytopenia due to unknown cause Unable to determine Not applicable Per H&P: MAG ARGUETA is a 64 year old female with a past medical history of diabetes, stage III CKD, 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 Thank you for your consideration, Clinical Documentation [employer] COLE Bauer RN, BSN RN
[2019-12-17] MEDS: ATORVASTATIN CALCIUM 10 MG TABLET PO SCH (22:06)
[2019-12-17] MEDS: NORMAL SALINE 1000 ML 1,000 ML IV PRN (22:12)
[2019-12-18] MEDS: PANTOPRAZOLE SODIUM 40 MG TABLET.DR PO SCH (05:24)
[2019-12-18] MEDS: NORMAL SALINE 1000 ML 1,000 ML IV PRN ×2 (06:32→18:03)
[2019-12-18 06:41] LABS: ABSOLUTE EOSINOPHILS # (AUTO) 0.1 10^3/uL (0.0-0.6); ABSOLUTE LYMPHOCYTES (AUTO) 1.3 10^3/uL (0.5-4.7); ABSOLUTE MONOCYTES (AUTO) 0.3 10^3/uL (0.1-1.4); ABSOLUTE NEUT (AUTO) 2.7 10^3/uL (1.7-8.2); BASOPHILS % (AUTO) 0.6 % (0-2); EOSINOPHILS % (AUTO) 2.8 % (0-6); HEMATOCRIT 33.7 % (36.0-47.0); HEMOGLOBIN 11.4 g/dL (12.0-15.5); LYMPHOCYTES % (AUTO) 28.8 % (13-45); MEAN CORPUSCULAR HEMOGLOBIN 30.9 pg (27.0-33.4); MEAN CORPUSCULAR HGB CONC 33.7 g/dL (32.0-36.0); MEAN CORPUSCULAR VOLUME 92 fl (80-97); MONOCYTES % (AUTO) 7.4 % (3-13); RED BLOOD COUNT 3.67 10^6/uL (3.72-5.28); RED CELL DISTRIBUTION WIDTH 14.1 % (11.5-14.0); SEGMENTED NEUTROPHILS % (AUTO) 60.4 % (42-78); TOTAL CELLS COUNTED % (AUTO) 100 %; WHITE BLOOD COUNT 4.5 10^3/uL (4.0-10.5)
[2019-12-18 06:52] LABS: PLATELET COUNT 88 10^3/uL (150-450)
[2019-12-18 06:58] LABS: ALBUMIN 3.3 g/dL (3.5-5.0); ANION GAP 7 (5-19); BLOOD UREA NITROGEN 19 mg/dL (7-20); CALCIUM 9.8 mg/dL (8.4-10.2); CARBON DIOXIDE 18 mmol/L (22-30); CHLORIDE 113 mmol/L (98-107); GLUCOSE 159 mg/dL (75-110); PHOSPHORUS 2.3 mg/dL (2.5-4.5); POTASSIUM 4.1 mmol/L (3.6-5.0)
[2019-12-18] MEDS ORDERED: PHOSPHORUS #1 250 MG TABLET PO ONE (08:33)
--- NOTE | 2019-12-18 08:38 | PDOC PROGRESS REPORT ---
Subjective Progress Note for:: 12/18/19 Subjective:: The patient is still feeling poorly. Her white blood cell count did yesterday but is back in the normal range today. Her abdomen is distended and she reports having paracentesis previously. With her drop in white blood cells spontaneous bacterial peritonitis is a consideration especially with the chronicity of her illness. Reason For Visit: ENCEPHALOPATHY Physical Exam Vital Signs: Temp Pulse Resp BP Pulse Ox 98.2 F 98 20 132/68 H 98 12/18/19 00:00 12/18/19 02:00 12/18/19 00:00 12/18/19 00:00 12/18/19 00:00 Intake & Output 12/17/19 12/18/19 12/19/19 06:59 06:59 06:59 Intake Total 480 1907 Output Total 0 Balance 480 1907 Weight 85.7 kg 88.4 kg General appearance: PRESENT: no acute distress, cooperative - Patient had limited interaction due to patient's cognitive state Head exam: PRESENT: atraumatic, normocephalic Ear exam: PRESENT: normal external ear exam. ABSENT: bleeding, drainage Mouth exam: PRESENT: dry mucosa, tongue midline Respiratory exam: PRESENT: clear to auscultation sandra, symmetrical, unlabored. ABSENT: prolonged expiratory phas, rales, rhonchi, tachypnea, wheezes Cardiovascular exam: PRESENT: RRR, +S1, +S2 GI/Abdominal exam: PRESENT: diminished bowel sounds, distended, soft, tenderness. ABSENT: guarding Rectal exam: PRESENT: deferred Extremities exam: ABSENT: pedal edema Neurological exam: PRESENT: altered - Patient did appear to be trying to answer questions however she has been emotionally flat., awake, oriented to person, oriented to time, other - Very poor short-term memory. ABSENT: alert Psychiatric exam: PRESENT: flat affect. ABSENT: agitated, anxious Skin exam: PRESENT: dry, pallor, warm. ABSENT: rash Results Laboratory Results: 12/18/19 06:09 12/18/19 06:09 12/17/19 12/18/19 12/18/19 09:06 06:09 06:09 WBC 2.5 L D 4.5 RBC 3.26 L 3.67 L Hgb 10.1 L 11.4 L Hct 30.4 L 33.7 L MCV 93 92 MCH 31.1 30.9 MCHC 33.4 33.7 RDW 14.5 H 14.1 H Plt Count 66 L 88 L Seg Neutrophils % 49.3 60.4 Sodium 138.0 Potassium 4.1 Chloride 113 H Carbon Dioxide 18 L Anion Gap 7 BUN 19 Creatinine 1.43 H Est GFR ( Amer) 45 L Glucose 159 H Calcium 9.8 Phosphorus 2.3 L Magnesium 1.8 Albumin 3.3 L 12/16/19 01:53 Blood Blood Culture (PCR) - Final Staphylococcus Species 12/16/19 12/16/19 12/16/19 04:25 04:25 11:19 Creatine Kinase 35 Troponin I 0.015 < 0.012 12/16/19 16:30 Creatine Kinase Troponin I < 0.012 Impressions: Lumbar Spine CT 12/16/19 01:14 IMPRESSION: Age-indeterminate compression fractures of T11, T12, L1, L2, L3, L5. No retropulsed fracture fragment or CT evidence for significant central canal stenosis. 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 TECHNICAL DOCUMENTATION: Quality ID # 436: Final reports with documentation of one or more dose reduction techniques (e.g., Automated exposure control, adjustment of the mA and/or kV according to patient size, use of iterative reconstruction technique) copyright 2011 [employer]- All Rights Reserved Assessment and Plan - Diagnosis (1) Hepatic encephalopathy Is this a current diagnosis for this admission?: Yes Plan: Lactulose 10 mg p.o. every 8 hours. Supportive measures. Discharge planning is likely unable to return to independent setting. 12/17/2019 Ammonia level is down to 18. We will decrease the lactulose but not discontinue altogether. 12/18/2019 Concern is for long-term adverse effects of her encephalopathy. She is is not engage well at the bedside. She cannot tell me the month but could not tell me where she was, that I was her physician or the day of the week. CT scan of the head recently showed microvascular changes. There could be a degree of dementia with this but it is difficult to determine. (2) Hypoglycemia associated with type 2 diabetes mellitus Is this a current diagnosis for this admission?: Yes Plan: 12/17/2019 On her listed home doses of insulin she is very hyperglycemic. This could be because she is not eating much. I have markedly decreased her Lantus 20 He told family will Continue Accu-Cheks and sliding scale. Continue to monitor closely. Hypoglycemic protocol is in place. 12/18/2019 I have significantly decreased her dose of Lantus. Her Accu-Cheks are much better. I would like to see Accu-Cheks between 101-150. If she starts to drift higher I will increase her Lantus slowly. (3) Hypokalemia Is this a current diagnosis for this admission?: Yes Plan: 12/17/2019 Potassium is 3.5. I will administer 20 mEq IV and increase her oral dose to 20 mEq. Continue to monitor serum potassium levels. 12/18/2019 Continue current regimen of 20 mg orally daily. Hopefully this will keep her in the normal range. (4) Thrombocytopenia Is this a current diagnosis for this admission?: Yes Plan: Anticipated secondary to Heredia and without complication, supportive care 12/17/2019 Platelet count has dropped. I have discontinued the DVT prophylaxis dose of heparin. Monitor platelets. 12/18/2019 Platelet counts are in the 80s today up from 66. We will continue to monitor. (5) Leukopenia Qualifiers: Leukopenia type: neutropenia Is this a current diagnosis for this admission?: Yes Plan: 12/17/2019 The white blood cell count dropped. The patient is on ceftriaxone. We will monitor it closely. It could be the patient's initial response to infection. One blood culture bottle has coagulase-negative staph. 12/18/2019 White blood cell count is back in the normal range. And going to add ciprofloxacin and metronidazole for possible SBP. Correction of above. Patient was not on ceftriaxone. (6) Ingrown toenail of right foot Is this a current diagnosis for this admission?: Yes Plan: 12/17/2019 This is likely causing the tenderness in the toe. There is no purulent discharge. It is not markedly swollen or red. Application of topical antibiotic ointment will likely soften the skin at the nail and she can address this as an outpatient. 12/18/2019 Apply bacitracin twice daily (7) Chronic renal failure, stage 3 (moderate) Is this a current diagnosis for this admission?: Yes Plan: 12/17/2019 Reviewing previous blood work it appears that the patient is at her baseline. Will decrease IV fluids. Will monitor renal function regularly. 12/18/2019 The patient's renal function is in fact stage IV at this time. We will continue to monitor closely, avoid nephrotoxic medications if possible and adjust other medications accordingly. (8) Nonalcoholic steatohepatitis (HEREDIA) Is this a current diagnosis for this admission?: Yes Plan: 12/17/2019 Supportive care at this point. 12/18/2019 I have ordered an abdominal ultrasound to get current imaging. (9) Abnormal gait Is this a current diagnosis for this admission?: Yes Plan: 12/17/2019 Evidently the patient has had falls. The most recent apparently was her throwing herself out of the wheelchair. I have asked physical therapy to evaluate the patient. 12/18/2019 Await physical therapy's evaluation (10) Anemia Qualifiers: Anemia type: other cause Other causes of anemia: chronic disease, other Qualified Code(s): D63.8 - Anemia in other chronic diseases classified elsewhere Is this a current diagnosis for this admission?: Yes Plan: 12/18/2019 The patient's white blood cell count has rebounded however she still remains anemic. This likely chronic and due to her liver disease. Hematology will be seeing her today and I await Dr. Virk's thoughts.. (11) Pancytopenia Is this a current diagnosis for this admission?: Yes Plan: 12/17/2019 The patient also has anemia. With all 3 cell lines depleted she in fact is pancytopenic. This is most likely from her HEREDIA. I will discuss with hematology as well. 12/18/2019 White blood cell count is now normal. Patient is no longer pancytopenic she remains a thrombocytopenia and anemia. - Time Time Spent with patient: 15-24 minutes Medications reviewed and adjusted accordingly: Yes
[2019-12-18] MEDS: INSULIN LISPRO 100 UNIT/ML 3 ML VIAL SUBCUT SCH ×3 (09:09→18:08)
[2019-12-18] MEDS: FLUOXETINE HCL 20 MG CAPSULE PO SCH (09:33)
[2019-12-18] MEDS: GABAPENTIN 300 MG CAPSULE PO SCH ×2 (09:33→21:26)
[2019-12-18] MEDS: FUROSEMIDE 20 MG TABLET PO SCH (09:33)
[2019-12-18] MEDS: VERAPAMIL HCL 180 MG TABLET.SA PO SCH (09:34)
[2019-12-18] MEDS: LACTULOSE SYRUP 20 GM/30 ML UDCUP PO SCH ×2 (09:34→18:03)
[2019-12-18] MEDS: DOCUSATE SODIUM 100 MG CAPSULE PO SCH ×2 (09:34→17:54)
[2019-12-18] MEDS: POTASSIUM CHLORIDE 10 MEQ TABLET.ER PO SCH (09:34)
[2019-12-18] MEDS: TOLTERODINE TARTRATE 1 MG TABLET PO SCH (09:37)
[2019-12-18] MEDS: INSULIN GLARGINE,HUM.REC.ANLOG 1,000 UNIT/10 ML VIAL SUBCUT SCH (09:52)
--- NOTE | 2019-12-18 10:06 | PDOC CONSULTATION ---
Consultation Consult Date: 12/18/19 Attending physician:: JASMEET WIGGINS Provider Consulted: TERRA QUINN Consult reason:: Pancytopenia, in the setting of cirrhosis History of Present Illness Admission Date/PCP: 12/16/19 11:48 Patient complains of: Confusion, possible increased abdominal girth History of Present Illness: MAG ARGUETA is a 64 year old female who is currently a poor historian but presents with confusion and concern of hepatic encephalopathy, she has Reeves cirrhosis longstanding, we have biopsy results from 2011 indicating this. She has had pancytopenia on and off with admissions. She notes that she is had a lot of complications recently, does not really remember what they are though, and does feel like her condition is getting worse, and also does feel like her abdominal girth is increasing over the last few months. She sees Dr. Gonzalez for hepatology. Past Medical History Cardiac Medical History: Reports: Hyperlipidema, Hypertension Denies: Coronary Artery Disease, Myocardial Infarction Pulmonary Medical History: Reports: Asthma Denies: Bronchitis, Chronic Obstructive Pulmonary Disease (COPD), Pneumonia, Tuberculosis Neurological Medical History: Denies: Seizures Endocrine Medical History: Reports: Diabetes Mellitus Type 2 Renal/ Medical History: Reports: End Stage Renal Disease GI Medical History: Reports: Cirrhosis, Gastroesophageal Reflux Disease Musculoskeltal Medical History: Reports: Arthritis Psychiatric Medical History: Reports: Depression Hematology: Denies: Anemia Past Surgical History Past Surgical History: Reports: Appendectomy, Cholecystectomy - lap, Hysterectomy Denies: Pacemaker Social History Lives with: Family Smoking Status: Unknown if Ever Smoked Frequency of Alcohol Use: None Hx Recreational Drug Use: No Drugs: None Hx Prescription Drug Abuse: No - Advance Directive Resuscitation Status: Full Code Family History Family History: Other - Unobtainable. denies: Reviewed & Not Pertinent - Unobtainable Parental Family History Reviewed: Yes Children Family History Reviewed: Yes Sibling(s) Family History Reviewed.: Yes Medication/Allergy Home Medications: Atorvastatin Calcium [Lipitor 10 mg Tablet] 10 mg PO QHS 12/15/19 Fluoxetine HCl 40 mg PO DAILY 12/15/19 Furosemide [Lasix] 20 mg PO DAILY 12/15/19 Gabapentin 600 mg PO BID 12/15/19 Insulin Glargine,Hum.rec.anlog [Lantus Insulin 100 Unit/mL Insulin Pen] 70 units SUBCUT QHS 12/15/19 Lisinopril [Prinivil] 10 mg PO DAILY 12/15/19 Meclizine HCl 50 mg PO BID 12/15/19 Pantoprazole Sodium 40 mg PO DAILY 12/15/19 Potassium Chloride [Klor-Con 10 Meq Tablet ER] 10 meq PO DAILY 12/15/19 Tolterodine Tartrate [Detrol] 2 mg PO DAILY 12/15/19 Verapamil HCl [Verapamil ER] 180 mg PO DAILY 12/15/19 Allergies/Adverse Reactions: No Known Allergies Allergy (Verified 12/16/19 09:08) Review of Systems ROS unobtainable: Due to mental status Physical Exam Vital Signs: Temp Pulse Resp BP Pulse Ox 98.5 F 92 18 127/46 H 89 L 12/18/19 07:56 12/18/19 07:56 12/18/19 07:56 12/18/19 07:56 12/18/19 07:56 Intake & Output 12/17/19 12/18/19 12/19/19 06:59 06:59 06:59 Intake Total 480 1907 Output Total 0 Balance 480 1907 Weight 85.7 kg 88.4 kg General appearance: PRESENT: no acute distress, well-developed, well-nourished Head exam: PRESENT: atraumatic, normocephalic Eye exam: PRESENT: conjunctiva pink, EOMI, PERRLA. ABSENT: scleral icterus Ear exam: PRESENT: normal external ear exam Mouth exam: PRESENT: moist, tongue midline Neck exam: ABSENT: carotid bruit, JVD, lymphadenopathy, thyromegaly Respiratory exam: PRESENT: clear to auscultation sandra. ABSENT: rales, rhonchi, wheezes Cardiovascular exam: PRESENT: RRR. ABSENT: diastolic murmur, rubs, systolic murmur Pulses: PRESENT: normal dorsalis pedis pul Vascular exam: PRESENT: normal capillary refill GI/Abdominal exam: PRESENT: normal bowel sounds, soft. ABSENT: distended, guarding, mass, organolmegaly, rebound, tenderness Rectal exam: PRESENT: deferred Extremities exam: PRESENT: full ROM. ABSENT: calf tenderness, clubbing, pedal edema Neurological exam: PRESENT: alert, awake, oriented to person, oriented to place, oriented to time, oriented to situation, CN II-XII grossly intact. ABSENT: motor sensory deficit Psychiatric exam: PRESENT: appropriate affect, normal mood. ABSENT: homicidal ideation, suicidal ideation Skin exam: PRESENT: dry, intact, warm. ABSENT: cyanosis, rash Results Laboratory Results: 12/18/19 06:09 12/18/19 06:09 12/17/19 12/18/19 12/18/19 09:06 06:09 06:09 WBC 2.5 L D 4.5 RBC 3.26 L 3.67 L Hgb 10.1 L 11.4 L Hct 30.4 L 33.7 L MCV 93 92 MCH 31.1 30.9 MCHC 33.4 33.7 RDW 14.5 H 14.1 H Plt Count 66 L 88 L Seg Neutrophils % 49.3 60.4 Sodium 138.0 Potassium 4.1 Chloride 113 H Carbon Dioxide 18 L Anion Gap 7 BUN 19 Creatinine 1.43 H Est GFR ( Amer) 45 L Glucose 159 H Calcium 9.8 Phosphorus 2.3 L Magnesium 1.8 Albumin 3.3 L 12/16/19 01:53 Blood Blood Culture (PCR) - Final Staphylococcus Species 12/16/19 12/16/19 12/16/19 04:25 04:25 11:19 Creatine Kinase 35 Troponin I 0.015 < 0.012 12/16/19 16:30 Creatine Kinase Troponin I < 0.012 Impressions: Lumbar Spine CT 12/16/19 01:14 IMPRESSION: Age-indeterminate compression fractures of T11, T12, L1, L2, L3, L5. No retropulsed fracture fragment or CT evidence for significant central canal stenosis. 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 TECHNICAL DOCUMENTATION: Quality ID # 436: Final reports with documentation of one or more dose reduction techniques (e.g., Automated exposure control, adjustment of the mA and/or kV according to patient size, use of iterative reconstruction technique) copyright 2011 [employer]- All Rights Reserved Assessment & Plan - Diagnosis (1) Pancytopenia Is this a current diagnosis for this admission?: Yes Plan: Multifactorial, but largely in part to the cirrhosis, currently no transfusion needed, no other intervention possible either. We will follow. - Time Time Spent: 50 to 70 Minutes
[2019-12-18] MEDS: PHOSPHORUS #1 250 MG TABLET PO SCH ×2 (12:33→18:03)
[2019-12-18] MEDS: METRONIDAZOLE 500 MG/NS RTU 500 MG/100 ML RTUPB IV SCH ×3 (12:34→23:17)
--- NOTE | 2019-12-18 17:09 | RADIOLOGY REPORT (SQ) ---
EXAM DESCRIPTION: U/S ABDOMEN COMPLETE W/DOPPLER IMAGES COMPLETED DATE/TIME: 12/18/2019 4:18 pm REASON FOR STUDY: Cirrhosis COMPARISON: Abdominal ultrasound 08/15/2011. TECHNIQUE: Dynamic and static grayscale images acquired of the abdomen and recorded on PACS. Additio nal selected color Doppler and spectral images recorded. Note: Study does not meet criteria for complete doppler/duplex scan LIMITATIONS: Limited evaluation of structures due to body habitus and obscuring bowel gas. FINDINGS: PANCREAS: No masses. Visualized pancreatic duct normal caliber. LIVER: Mild nodular contour. Diffuse increased echogenicity. Decreased liver size. LIVER VASCULATURE: Normal directional flow of the main portal vein and hepatic veins. GALLBLADDER: Surgically absent. ULTRASOUND-DETECTED COHN'S SIGN: Negative. INTRAHEPATIC DUCTS AND COMMON DUCT: CBD and intrahepatic ducts normal caliber. No filling defects. INFERIOR VENA CAVA: Normal flow. AORTA: No aneurysm. RIGHT KIDNEY: Normal size. Cortical thinning. Increased echogenicity. No solid or suspicious mas ses. No hydronephrosis. No calcifications. LEFT KIDNEY: Normal size. Cortical thinning. Increased echogenicity. No solid or suspicious mass es. No hydronephrosis. No calcifications. SPLEEN: Enlarged. PERITONEAL AND PLEURAL SPACES: No ascites. Bilateral pleural effusions. OTHER: No other significant finding. IMPRESSION: Limited evaluation of abdominal structures. Decreased liver size and mild nodular contour compatible with cirrhosis. Splenomegaly. Bilateral pleural effusions. Medical renal disease. TECHNICAL DOCUMENTATION: JOB ID: [id number] 2010 [employer]- All Rights Reserved Reading location - IP/workstation name: [email or web address]
[2019-12-18] MEDS: BACITRACIN ZINC OINTMENT 15 GM TP SCH (18:04)
[2019-12-18] MEDS: ATORVASTATIN CALCIUM 10 MG TABLET PO SCH (21:26)
[2019-12-18] MEDS: CIPROFLOXACIN 200 MG/D5W RTU 200 MG/100 ML RTUPB IV SCH (21:26)
[2019-12-19] MEDS: PANTOPRAZOLE SODIUM 40 MG TABLET.DR PO SCH (05:32)
[2019-12-19] MEDS: METRONIDAZOLE 500 MG/NS RTU 500 MG/100 ML RTUPB IV SCH ×4 (05:32→23:15)
[2019-12-19] MEDS: NORMAL SALINE 1000 ML 1,000 ML IV PRN ×2 (05:40→21:35)
[2019-12-19 06:30] LABS: ABSOLUTE EOSINOPHILS # (AUTO) 0.1 10^3/uL (0.0-0.6); ABSOLUTE LYMPHOCYTES (AUTO) 0.9 10^3/uL (0.5-4.7); ABSOLUTE MONOCYTES (AUTO) 0.2 10^3/uL (0.1-1.4); ABSOLUTE NEUT (AUTO) 1.7 10^3/uL (1.7-8.2); BASOPHILS % (AUTO) 0.4 % (0-2); EOSINOPHILS % (AUTO) 2.6 % (0-6); HEMATOCRIT 30.1 % (36.0-47.0); HEMOGLOBIN 10.2 g/dL (12.0-15.5); MEAN CORPUSCULAR HEMOGLOBIN 30.8 pg (27.0-33.4); MEAN CORPUSCULAR HGB CONC 33.8 g/dL (32.0-36.0); MEAN CORPUSCULAR VOLUME 91 fl (80-97); MONOCYTES % (AUTO) 7.9 % (3-13); RED CELL DISTRIBUTION WIDTH 14.2 % (11.5-14.0); SEGMENTED NEUTROPHILS % (AUTO) 58.1 % (42-78); TOTAL CELLS COUNTED % (AUTO) 100 %
[2019-12-19 06:36] LABS: PLATELET COUNT 63 10^3/uL (150-450); WHITE BLOOD COUNT 2.8 10^3/uL (4.0-10.5)
[2019-12-19 06:38] LABS: ANION GAP 6 (5-19); BLOOD UREA NITROGEN 17 mg/dL (7-20); CALCIUM 9.3 mg/dL (8.4-10.2); CARBON DIOXIDE 21 mmol/L (22-30); CHLORIDE 113 mmol/L (98-107); GLUCOSE 171 mg/dL (75-110); PHOSPHORUS 2.6 mg/dL (2.5-4.5)
[2019-12-19] MEDS: DOCUSATE SODIUM 100 MG CAPSULE PO SCH ×2 (09:18→17:26)
[2019-12-19] MEDS: INSULIN LISPRO 100 UNIT/ML 3 ML VIAL SUBCUT SCH ×3 (09:29→17:30)
[2019-12-19] MEDS: FLUOXETINE HCL 20 MG CAPSULE PO SCH (09:29)
[2019-12-19] MEDS: POTASSIUM CHLORIDE 10 MEQ TABLET.ER PO SCH (09:30)
[2019-12-19] MEDS: FUROSEMIDE 20 MG TABLET PO SCH (09:30)
[2019-12-19] MEDS: PHOSPHORUS #1 250 MG TABLET PO SCH ×3 (09:30→17:30)
[2019-12-19] MEDS: VERAPAMIL HCL 180 MG TABLET.SA PO SCH (09:30)
[2019-12-19] MEDS: TOLTERODINE TARTRATE 1 MG TABLET PO SCH (09:30)
[2019-12-19] MEDS: INSULIN GLARGINE,HUM.REC.ANLOG 1,000 UNIT/10 ML VIAL SUBCUT SCH (09:30)
[2019-12-19] MEDS: GABAPENTIN 300 MG CAPSULE PO SCH ×2 (09:30→21:24)
[2019-12-19] MEDS: LACTULOSE SYRUP 20 GM/30 ML UDCUP PO SCH ×2 (09:31→17:30)
[2019-12-19] MEDS: CIPROFLOXACIN 200 MG/D5W RTU 200 MG/100 ML RTUPB IV SCH ×2 (09:31→21:24)
[2019-12-19] MEDS: BACITRACIN ZINC OINTMENT 15 GM TP SCH ×2 (09:32→17:31)
--- NOTE | 2019-12-19 13:51 | PDOC PROGRESS REPORT ---
Subjective Progress Note for:: 12/19/19 Subjective:: The patient is still quite lethargic. She barely open her eyes to answer questions. She is not oriented to anything other than person. Reason For Visit: ENCEPHALOPATHY Physical Exam Vital Signs: Temp Pulse Resp BP Pulse Ox 99.0 F 72 15 141/59 H 94 12/19/19 11:47 12/19/19 11:47 12/19/19 11:47 12/19/19 11:47 12/19/19 11:47 Intake & Output 12/18/19 12/19/19 12/20/19 06:59 06:59 06:59 Intake Total 1907 3120 100 Balance 1907 3120 100 Weight 88.4 kg 85.9 kg General appearance: PRESENT: no acute distress, obese. ABSENT: cooperative - Lethargic Head exam: PRESENT: atraumatic, normocephalic Respiratory exam: PRESENT: clear to auscultation sandra - Anteriorly, symmetrical, unlabored. ABSENT: rhonchi, tachypnea, wheezes Cardiovascular exam: PRESENT: RRR, +S1, +S2, other - Distant heart sounds GI/Abdominal exam: PRESENT: normal bowel sounds, soft, other - Pendulous abdomen. ABSENT: distended, tenderness Rectal exam: PRESENT: deferred Extremities exam: ABSENT: pedal edema Musculoskeletal exam: ABSENT: ambulatory Neurological exam: PRESENT: other - Difficult to assess orientation but the patient has consistently not been oriented. ABSENT: alert - No significant verbal interaction today. She did give 1 or 2 one-word answers but she mumbled so it was difficult to comprehend., awake - Patient did start to open her eyes to verbal prompting but immediately closes them. Psychiatric exam: PRESENT: flat affect, other - Lethargic Focused psych exam: PRESENT: other - Unable to assess Skin exam: PRESENT: pallor Results Laboratory Results: 12/19/19 05:30 12/19/19 05:30 12/19/19 12/19/19 05:30 05:30 WBC 2.8 L D RBC 3.30 L Hgb 10.2 L Hct 30.1 L MCV 91 MCH 30.8 MCHC 33.8 RDW 14.2 H Plt Count 63 L Seg Neutrophils % 58.1 Sodium 139.5 Potassium 4.0 Chloride 113 H Carbon Dioxide 21 L Anion Gap 6 BUN 17 Creatinine 1.30 H Est GFR ( Amer) 50 L Glucose 171 H Calcium 9.3 Phosphorus 2.6 Magnesium 1.5 L 12/16/19 01:53 Blood Blood Culture (PCR) - Final Staphylococcus Species 12/16/19 12/16/19 12/16/19 04:25 04:25 11:19 Creatine Kinase 35 Troponin I 0.015 < 0.012 12/16/19 16:30 Creatine Kinase Troponin I < 0.012 Impressions: Lumbar Spine CT 12/16/19 01:14 IMPRESSION: Age-indeterminate compression fractures of T11, T12, L1, L2, L3, L5. No retropulsed fracture fragment or CT evidence for significant central canal stenosis. 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 TECHNICAL DOCUMENTATION: Quality ID # 436: Final reports with documentation of one or more dose reduction techniques (e.g., Automated exposure control, adjustment of the mA and/or kV according to patient size, use of iterative reconstruction technique) copyright 2011 [employer]- All Rights Reserved Abdomen Ultrasound 12/18/19 00:00 IMPRESSION: Limited evaluation of abdominal structures. Decreased liver size and mild nodular contour compatible with cirrhosis. Splenomegaly. Bilateral pleural effusions. Medical renal disease. Assessment and Plan - Diagnosis (1) Hepatic encephalopathy Is this a current diagnosis for this admission?: Yes Plan: Lactulose 10 mg p.o. every 8 hours. Supportive measures. Discharge planning is likely unable to return to independent setting. 12/17/2019 Ammonia level is down to 18. We will decrease the lactulose but not discontinue altogether. 12/18/2019 Concern is for long-term adverse effects of her encephalopathy. She is is not engage well at the bedside. She cannot tell me the month but could not tell me where she was, that I was her physician or the day of the week. CT scan of the head recently showed microvascular changes. There could be a degree of dementia with this but it is difficult to determine. 12/19/2019 I spoke to the patient's daughter. She confirms no history of alcohol. The patient was in the emergency department on December 14 and her ammonia level was 70. On the day of admission she was down to 38 and has subsequently normalized. Normally I would have expected her to perk up and be more interactive but she has not. This could all be cirrhosis however I will check a cortisol level. Her TSH was normal. Am going to institute a short trial of Ritalin twice daily and decrease her Prozac. I would like to phase in a different antidepressant. Her daughter did confirm that she feels that she has been quite depressed for so me time now. (2) Hyperglycemia due to type 2 diabetes mellitus Qualifiers: Diabetes mellitus usp insulin use: with usp use Qualified Code(s): E11.65 - Type 2 diabetes mellitus with hyperglycemia; Z79.4 - shelter (current) use of insulin Is this a current diagnosis for this admission?: Yes Plan: 12/19/2019 The patient had several hypoglycemic Accu-Cheks early in the hospitalization. I have cut way back on her insulin. She is now mostly between 150 and 200. Her daughter did ask if I felt she was on too much insulin previously. It is hard to know because we are not aware of her dietary compliance at home as well as her appetite. Her appetite is decreased here. I will slowly increase long- acting insulin. For this patient a reasonable goal will be 125-150. (3) Hypoglycemia associated with type 2 diabetes mellitus Is this a current diagnosis for this admission?: Yes Plan: 12/17/2019 On her listed home doses of insulin she is very hyperglycemic. This could be because she is not eating much. I have markedly decreased her Lantus 20 He told family will Continue Accu-Cheks and sliding scale. Continue to monitor closely. Hypoglycemic protocol is in place. 12/18/2019 I have significantly decreased her dose of Lantus. Her Accu-Cheks are much better. I would like to see Accu-Cheks between 101-150. If she starts to drift higher I will increase her Lantus slowly. 12/19/2019 Hypoglycemia resolved. See above. (4) Hypokalemia Is this a current diagnosis for this admission?: Yes Plan: 12/17/2019 Potassium is 3.5. I will administer 20 mEq IV and increase her oral dose to 20 mEq. Continue to monitor serum potassium levels. 12/18/2019 Continue current regimen of 20 mg orally daily. Hopefully this will keep her in the normal range. 12/19/2019 Potassium normal today. We will continue to monitor with blood work. (5) Pancytopenia Is this a current diagnosis for this admission?: Yes Plan: 12/17/2019 The patient also has anemia. With all 3 cell lines depleted she in fact is pancytopenic. This is most likely from her HEREDIA. I will discuss with hematology as well. 12/18/2019 White blood cell count is now normal. Patient is no longer pancytopenic she remains a thrombocytopenia and anemia. 12/19/[address] Virk's input. This may all be related to her cirrhosis. We will continue to monitor her CBC. (6) Thrombocytopenia Is this a current diagnosis for this admission?: Yes Plan: Anticipated secondary to He[place] and without complication, supportive care 12/17/2019 Platelet count has dropped. I have discontinued the DVT prophylaxis dose of heparin. Monitor platelets. 12/18/2019 Platelet counts are in the 80s today up from 66. We will continue to monitor. 12/19/2019 Platelet count decreased again today. We will continue to monitor. Please also see above (7) Leukopenia Qualifiers: Leukopenia type: neutropenia Is this a current diagnosis for this admission?: Yes Plan: 12/17/2019 The white blood cell count dropped. The patient is on ceftriaxone. We will monitor it closely. It could be the patient's initial response to infection. One blood culture bottle has coagulase-negative staph. 12/18/2019 White blood cell count is back in the normal range. And going to add ciprofloxacin and metronidazole for possible SBP. Correction of above. Patient was not on ceftriaxone. 12/19/2019 Her white blood cell count dropped below 3.0 again today. I did start her on antibiotics for possible spontaneous bacterial peritonitis. There is no significant ascites. She had one blood culture bottle positive for coagulase- negative staph which is likely a contaminant. I will recheck a CBC. If her white blood cell count continues to go lower I will change her antibiotic therapy. If it begins to recover I will likely keep the current antibiotics for several more days and reassess. (8) Anemia Qualifiers: Anemia type: other cause Other causes of anemia: chronic disease, other Qualified Code(s): D63.8 - Anemia in other chronic diseases classified elsewhere Is this a current diagnosis for this admission?: Yes Plan: 12/18/2019 The patient's white blood cell count has rebounded however she still remains anemic. This likely chronic and due to her liver disease. Hematology will be seeing her today and I await Dr. Virk's thoughts.. 12/19/2019 Hemoglobin has fallen again and is back to 10.2. Please also see hematology consult. Her pancytopenia is likely related to her liver disease. (9) Ingrown toenail of right foot Is this a current diagnosis for this admission?: Yes Plan: 12/17/2019 This is likely causing the tenderness in the toe. There is no purulent discharge. It is not markedly swollen or red. Application of topical antibiotic ointment will likely soften the skin at the nail and she can address this as an outpatient. 12/18/2019 Apply bacitracin twice daily 12/19/2019 Continue conservative care (10) Chronic renal failure, stage 3 (moderate) Is this a current diagnosis for this admission?: Yes Plan: 12/17/2019 Reviewing previous blood work it appears that the patient is at her baseline. Will decrease IV fluids. Will monitor renal function regularly. 12/18/2019 The patient's renal function is in fact stage IV at this time. We will continue to monitor closely, avoid nephrotoxic medications if possible and adjust other medications accordingly. 12/19/2019 Her renal function is improved. She in fact is slightly better than her recent baseline. We will continue current management and monitor her function. She is urinating but she is incontinent and so it is difficult to monitor. I would rather not place a Skel[place] catheter at this time. (11) Nonalcoholic steatohepatitis (HEREDIA) Is this a current diagnosis for this admission?: Yes Plan: 12/17/2019 Supportive care at this point. 12/18/2019 I have ordered an abdominal ultrasound to get current imaging. 12/19/2019 No ascites but cirrhosis noted. I confirmed with patient's daughter that she was never a drinker. The progressing liver disease could be causing much of the abnormalities noted above. (12) Abnormal gait Is this a current diagnosis for this admission?: Yes Plan: 12/17/2019 Evidently the patient has had falls. The most recent apparently was her throwing herself out of the wheelchair. I have asked physical therapy to evaluate the patient. 12/18/2019 Await physical therapy's evaluation 12/19/2019 The patient is quite weak. She did participate with physical therapy earlier. She will benefit from ongoing treatment. - Time Time Spent with patient: 15-24 minutes Medications reviewed and adjusted accordingly: Yes Anticipated discharge: SNF
[2019-12-19] MEDS: METHYLPHENIDATE HCL 5 MG TABLET PO SCH (17:26)
[2019-12-19] MEDS: MAGNESIUM OXIDE 400 MG TABLET PO SCH (17:30)
[2019-12-19] MEDS: ATORVASTATIN CALCIUM 10 MG TABLET PO SCH (21:24)
[2019-12-20] MEDS: METRONIDAZOLE 500 MG/NS RTU 500 MG/100 ML RTUPB IV SCH ×3 (05:11→17:36)
[2019-12-20] MEDS: PANTOPRAZOLE SODIUM 40 MG TABLET.DR PO SCH (05:12)
[2019-12-20 06:20] LABS: ABSOLUTE EOSINOPHILS # (AUTO) 0.1 10^3/uL (0.0-0.6); ABSOLUTE MONOCYTES (AUTO) 0.2 10^3/uL (0.1-1.4); ABSOLUTE NEUT (AUTO) 1.2 10^3/uL (1.7-8.2); BASOPHILS % (AUTO) 0.4 % (0-2); EOSINOPHILS % (AUTO) 2.5 % (0-6); HEMATOCRIT 26.7 % (36.0-47.0); LYMPHOCYTES % (AUTO) 38.5 % (13-45); MEAN CORPUSCULAR HEMOGLOBIN 31.2 pg (27.0-33.4); MEAN CORPUSCULAR HGB CONC 33.7 g/dL (32.0-36.0); MEAN CORPUSCULAR VOLUME 92 fl (80-97); MONOCYTES % (AUTO) 8.5 % (3-13); RED BLOOD COUNT 2.89 10^6/uL (3.72-5.28); RED CELL DISTRIBUTION WIDTH 14.1 % (11.5-14.0); SEGMENTED NEUTROPHILS % (AUTO) 50.1 % (42-78); TOTAL CELLS COUNTED % (AUTO) 100 %; WHITE BLOOD COUNT 2.5 10^3/uL (4.0-10.5)
[2019-12-20 06:34] LABS: ALBUMIN 2.5 g/dL (3.5-5.0); ANION GAP 5 (5-19); BLOOD UREA NITROGEN 15 mg/dL (7-20); CALCIUM 8.7 mg/dL (8.4-10.2); CARBON DIOXIDE 20 mmol/L (22-30); CHLORIDE 113 mmol/L (98-107); GLUCOSE 125 mg/dL (75-110); PHOSPHORUS 2.8 mg/dL (2.5-4.5); POTASSIUM 3.6 mmol/L (3.6-5.0)
[2019-12-20 06:50] LABS: PLATELET COUNT 59 10^3/uL (150-450)
[2019-12-20] MEDS ORDERED: METHYLPHENIDATE HCL 5 MG TABLET PO SCH (08:00)
--- NOTE | 2019-12-20 08:04 | PDOC PROGRESS REPORT ---
Subjective Progress Note for:: 12/20/19 Subjective:: No acute events overnight Reason For Visit: ENCEPHALOPATHY Physical Exam Vital Signs: Temp Pulse Resp BP Pulse Ox 98.1 F 67 22 H 119/47 L 94 12/19/19 23:13 12/20/19 07:00 12/19/19 23:13 12/19/19 23:13 12/20/19 04:26 Pulse Oximeter Nocturnal Start: 12/19/19 13:55 Freq: RTQ4 Status: Complete Protocol: Document 12/20/19 07:17 CMI (Rec: 12/20/19 07:17 CMI [id number]) Nocturnal Pulse Oximetry Equipment Usage Equipment Discontinued Continuous SpO2 Machine # 3 Intake & Output 12/19/19 12/20/19 12/21/19 06:59 06:59 06:59 Intake Total 3120 1618 Balance 3120 1618 Weight 85.9 kg 91.6 kg General appearance: PRESENT: no acute distress, well-developed, well-nourished Head exam: PRESENT: atraumatic, normocephalic Eye exam: PRESENT: conjunctiva pink, EOMI, PERRLA. ABSENT: scleral icterus Ear exam: PRESENT: normal external ear exam Mouth exam: PRESENT: moist, tongue midline Neck exam: ABSENT: carotid bruit, JVD, lymphadenopathy, thyromegaly Respiratory exam: PRESENT: clear to auscultation sandra. ABSENT: rales, rhonchi, wheezes Cardiovascular exam: PRESENT: RRR. ABSENT: diastolic murmur, rubs, systolic murmur Pulses: PRESENT: normal dorsalis pedis pul Vascular exam: PRESENT: normal capillary refill GI/Abdominal exam: PRESENT: normal bowel sounds, soft. ABSENT: distended, guarding, mass, organolmegaly, rebound, tenderness Rectal exam: PRESENT: deferred Extremities exam: PRESENT: full ROM. ABSENT: calf tenderness, clubbing, pedal edema Neurological exam: PRESENT: alert, awake, oriented to person, oriented to place, oriented to time, oriented to situation, CN II-XII grossly intact. ABSENT: motor sensory deficit Psychiatric exam: PRESENT: appropriate affect, normal mood. ABSENT: homicidal ideation, suicidal ideation Skin exam: PRESENT: dry, intact, warm. ABSENT: cyanosis, rash Results Laboratory Results: 12/20/19 05:28 12/20/19 05:28 12/20/19 12/20/19 05:28 05:28 WBC 2.5 L RBC 2.89 L Hgb 9.0 L Hct 26.7 L MCV 92 MCH 31.2 MCHC 33.7 RDW 14.1 H Plt Count 59 L Seg Neutrophils % 50.1 Sodium 138.1 Potassium 3.6 Chloride 113 H Carbon Dioxide 20 L Anion Gap 5 BUN 15 Creatinine 1.19 Est GFR ( Amer) 55 L Glucose 125 H Calcium 8.7 Phosphorus 2.8 Magnesium 1.5 L Albumin 2.5 L 12/16/19 01:53 Blood Blood Culture (PCR) - Final Staphylococcus Species 12/16/19 12/16/19 12/16/19 04:25 04:25 11:19 Creatine Kinase 35 Troponin I 0.015 < 0.012 12/16/19 16:30 Creatine Kinase Troponin I < 0.012 Impressions: Lumbar Spine CT 12/16/19 01:14 IMPRESSION: Age-indeterminate compression fractures of T11, T12, L1, L2, L3, L5. No retropulsed fracture fragment or CT evidence for significant central canal stenosis. 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 TECHNICAL DOCUMENTATION: Quality ID # 436: Final reports with documentation of one or more dose reduction techniques (e.g., Automated exposure control, adjustment of the mA and/or kV according to patient size, use of iterative reconstruction technique) copyright 2011 [employer]- All Rights Reserved Abdomen Ultrasound 12/18/19 00:00 IMPRESSION: Limited evaluation of abdominal structures. Decreased liver size and mild nodular contour compatible with cirrhosis. Splenomegaly. Bilateral pleural effusions. Medical renal disease. Assessment & Plan - Diagnosis (1) Pancytopenia Is this a current diagnosis for this admission?: Yes Plan: Overall stable, 2nd cirrhosis and current underlying process. No further heme w/u needed as of now. Will follow peripherally - Time Time Spent with patient: 15-24 minutes
[2019-12-20] MEDS: LACTULOSE SYRUP 20 GM/30 ML UDCUP PO SCH ×2 (09:40→17:32)
[2019-12-20] MEDS: BACITRACIN ZINC OINTMENT 15 GM TP SCH ×2 (09:40→17:41)
[2019-12-20] MEDS: POTASSIUM CHLORIDE 10 MEQ TABLET.ER PO SCH (09:41)
[2019-12-20] MEDS: FUROSEMIDE 20 MG TABLET PO SCH (09:41)
[2019-12-20] MEDS: PHOSPHORUS #1 250 MG TABLET PO SCH ×3 (09:41→17:37)
[2019-12-20] MEDS: VERAPAMIL HCL 180 MG TABLET.SA PO SCH (09:41)
[2019-12-20] MEDS: GABAPENTIN 300 MG CAPSULE PO SCH ×2 (09:41→21:55)
[2019-12-20] MEDS: TOLTERODINE TARTRATE 1 MG TABLET PO SCH (09:41)
[2019-12-20] MEDS: MAGNESIUM OXIDE 400 MG TABLET PO SCH ×3 (09:42→17:37)
[2019-12-20] MEDS: FLUOXETINE HCL 20 MG CAPSULE PO SCH (09:42)
[2019-12-20] MEDS: DOCUSATE SODIUM 100 MG CAPSULE PO SCH ×2 (09:44→17:32)
[2019-12-20] MEDS: INSULIN LISPRO 100 UNIT/ML 3 ML VIAL SUBCUT SCH ×3 (09:44→16:47)
[2019-12-20] MEDS: NORMAL SALINE 1000 ML 1,000 ML IV PRN (09:48)
[2019-12-20] MEDS: CIPROFLOXACIN 200 MG/D5W RTU 200 MG/100 ML RTUPB IV SCH (09:48)
[2019-12-20] MEDS: INSULIN GLARGINE,HUM.REC.ANLOG 1,000 UNIT/10 ML VIAL SUBCUT SCH (09:48)
[2019-12-20] MEDS: METHYLPHENIDATE HCL 5 MG TABLET PO SCH ×2 (09:48→14:54)
--- NOTE | 2019-12-20 13:13 | PDOC PROGRESS REPORT ---
Subjective Progress Note for:: 12/20/19 Subjective:: Actually sitting up in bed eating lunch. She is awake and alert. She still does not appear to be comprehending our discussion. Reason For Visit: ENCEPHALOPATHY Physical Exam Vital Signs: Temp Pulse Resp BP Pulse Ox 98.3 F 70 16 112/47 L 96 12/20/19 07:56 12/20/19 07:56 12/20/19 07:56 12/20/19 07:56 12/20/19 07:56 Pulse Oximeter Nocturnal Start: 12/19/19 13:55 Freq: RTQ4 Status: Complete Protocol: Document 12/20/19 07:17 CMI (Rec: 12/20/19 07:17 CMI [id number]) Nocturnal Pulse Oximetry Equipment Usage Equipment Discontinued Continuous SpO2 Machine # 3 Intake & Output 12/19/19 12/20/19 12/21/19 06:59 06:59 06:59 Intake Total 3120 1718 1000 Balance 3120 1718 1000 Weight 85.9 kg 91.6 kg General appearance: PRESENT: no acute distress, other - Patient is eating lunch Head exam: PRESENT: atraumatic, normocephalic Eye exam: PRESENT: conjunctiva pale Mouth exam: PRESENT: moist, tongue midline Respiratory exam: PRESENT: clear to auscultation sandra - Anteriorly, symmetrical, unlabored. ABSENT: rales, rhonchi, tachypnea, wheezes Cardiovascular exam: PRESENT: RRR, +S1, +S2 GI/Abdominal exam: PRESENT: normal bowel sounds, soft, other - Pendulous abdomen. ABSENT: guarding, tenderness Rectal exam: PRESENT: deferred Neurological exam: PRESENT: alert, awake, oriented to person. ABSENT: oriented to place Psychiatric exam: PRESENT: flat affect, unusual affect - Patient with an almost infantile affect. ABSENT: agitated, anxious Results Laboratory Results: 12/20/19 05:28 12/20/19 05:28 12/20/19 12/20/19 05:28 05:28 WBC 2.5 L RBC 2.89 L Hgb 9.0 L Hct 26.7 L MCV 92 MCH 31.2 MCHC 33.7 RDW 14.1 H Plt Count 59 L Seg Neutrophils % 50.1 Sodium 138.1 Potassium 3.6 Chloride 113 H Carbon Dioxide 20 L Anion Gap 5 BUN 15 Creatinine 1.19 Est GFR ( Amer) 55 L Glucose 125 H Calcium 8.7 Phosphorus 2.8 Magnesium 1.5 L Albumin 2.5 L 12/16/19 01:53 Blood Blood Culture (PCR) - Final Staphylococcus Species 12/16/19 12/16/19 12/16/19 04:25 04:25 11:19 Creatine Kinase 35 Troponin I 0.015 < 0.012 12/16/19 16:30 Creatine Kinase Troponin I < 0.012 Impressions: Lumbar Spine CT 12/16/19 01:14 IMPRESSION: Age-indeterminate compression fractures of T11, T12, L1, L2, L3, L5. No retropulsed fracture fragment or CT evidence for significant central canal stenosis. 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 TECHNICAL DOCUMENTATION: Quality ID # [id number]: Final reports with documentation of one or more dose reduction techniques (e.g., Automated exposure control, adjustment of the mA and/or kV according to patient size, use of iterative reconstruction technique) copyright 2011 [employer]- All Rights Reserved Abdomen Ultrasound 12/18/19 00:00 IMPRESSION: Limited evaluation of abdominal structures. Decreased liver size and mild nodular contour compatible with cirrhosis. Splenomegaly. Bilateral pleural effusions. Medical renal disease. Assessment and Plan - Diagnosis (1) Hepatic encephalopathy Is this a current diagnosis for this admission?: Yes Plan: Lactulose 10 mg p.o. every 8 hours. Supportive measures. Discharge planning is likely unable to return to independent setting. 12/17/2019 Ammonia level is down to 18. We will decrease the lactulose but not discontinue altogether. 12/18/2019 Concern is for long-term adverse effects of her encephalopathy. She is is not e ngage well at the bedside. She cannot tell me the month but could not tell me where she was, that I was her physician or the day of the week. CT scan of the head recently showed microvascular changes. There could be a degree of dementia with this but it is difficult to determine. 12/19/2019 I spoke to the patient's daughter. She confirms no history of alcohol. The patient was in the emergency department on December 14 and her ammonia level was 70. On the day of admission she was down to 38 and has subsequently normalized. Normally I would have expected her to perk up and be more interactive but she has not. This could all be cirrhosis however I will check a cortisol level. Her TSH was normal. Am going to institute a short trial of Ritalin twice daily and decrease her Prozac. I would like to phase in a different antidepressant. Her daughter did confirm that she feels that she has been quite depressed for some time now. 12/20/2019 the patient's ammonia level was back in the normal range. She is oriented to person and does not seem to be completely comprehending all of what is going on. He strengthens while she was eating lunch and I was talking to her it is almost childlike the way she focused on her food did not participate in the conversation. (2) Hyperglycemia due to type 2 diabetes mellitus Qualifiers: Diabetes mellitus long goods drier insulin use: with longterm use Qualified Code(s): E11.65 - Type 2 diabetes mellitus with hyperglycemia; Z79.4 - group home (current) use of insulin Is this a current diagnosis for this admission?: Yes Plan: 12/19/2019 The patient had several hypoglycemic Accu-Cheks early in the hospitalization. I have cut way back on her insulin. She is now mostly between 150 and 200. Her daughter did ask if I felt she was on too much insulin previously. It is hard to know because we are not aware of her dietary compliance at home as well as her appetite. Her appetite is decreased here. I will slowly increase long- acting insulin. For this patient a reasonable goal will be 125-150. 12/20/2019 Continue current regimen. Adequate control. (3) Hypokalemia Is this a current diagnosis for this admission?: Yes Plan: 12/17/2019 Potassium is 3.5. I will administer 20 mEq IV and increase her oral dose to 20 mEq. Continue to monitor serum potassium levels. 12/18/2019 Continue current regimen of 20 mg orally daily. Hopefully this will keep her in the normal range. 12/19/2019 Potassium normal today. We will continue to monitor with blood work. 12/20/2019 Continue potassium supplementation (4) Pancytopenia Is this a current diagnosis for this admission?: Yes Plan: 12/17/2019 The patient also has anemia. With all 3 cell lines depleted she in fact is pancytopenic. This is most likely from her HEREDIA. I will discuss with hematology as well. 12/18/2019 White blood cell count is now normal. Patient is no longer pancytopenic she remains a thrombocytopenia and anemia. 12/19/[address] Virk's input. This may all be related to her cirrhosis. We will continue to monitor her CBC. 12/20/2019 Per hematology there is little intervention as this is related to her chronic progressive liver disease (5) Thrombocytopenia Is this a current diagnosis for this admission?: Yes Plan: Anticipated secondary to Heredia and without complication, supportive care 12/17/2019 Platelet count has dropped. I have discontinued the DVT prophylaxis dose of heparin. Monitor platelets. 12/18/2019 Platelet counts are in the 80s today up from 66. We will continue to monitor. 12/19/2019 Platelet count decreased again today. We will continue to monitor. Please also see above 12/20/2019 Platelets continue to decline (6) Leukopenia Qualifiers: Leukopenia type: neutropenia Is this a current diagnosis for this admission?: Yes Plan: 12/17/2019 The white blood cell count dropped. The patient is on ceftriaxone. We will monitor it closely. It could be the patient's initial response to infection. One blood culture bottle has coagulase-negative staph. 12/18/2019 White blood cell count is back in the normal range. And going to add ciprofloxacin and metronidazole for possible SBP. Correction of above. Patient was not on ceftriaxone. 12/19/2019 Her white blood cell count dropped below 3.0 again today. I did start her on antibiotics for possible spontaneous bacterial peritonitis. There is no significant ascites. She had one blood culture bottle positive for coagulase- negative staph which is likely a contaminant. I will recheck a CBC. If her white blood cell count continues to go lower I will change her antibiotic therapy. If it begins to recover I will likely keep the current antibiotics for several more days and reassess. 12/20/2019 Still at 2.5. (7) Anemia Qualifiers: Anemia type: other cause Other causes of anemia: chronic disease, other Qualified Code(s): D63.8 - Anemia in other chronic diseases classified elsewhere Is this a current diagnosis for this admission?: Yes Plan: 12/18/2019 The patient's white blood cell count has rebounded however she still remains anemic. This likely chronic and due to her liver disease. Hematology will be seeing her today and I await Dr. Virk's thoughts.. 12/19/2019 Hemoglobin has fallen again and is back to 10.2. Please also see hematology consult. Her pancytopenia is likely related to her liver disease. 12/20/2019 Hemoglobin is now 9.0. We will continue to monitor. Unfortunately this is likely due to her chronic progressive liver disease (8) Ingrown toenail of right foot Is this a current diagnosis for this admission?: Yes Plan: 12/17/2019 This is likely causing the tenderness in the toe. There is no purulent discharge. It is not markedly swollen or red. Application of topical antibiotic ointment will likely soften the skin at the nail and she can address this as an outpatient. 12/18/2019 Apply bacitracin twice daily 12/19/2019 Continue conservative care (9) Chronic renal failure, stage 3 (moderate) Is this a current diagnosis for this admission?: Yes Plan: 12/17/2019 Reviewing previous blood work it appears that the patient is at her baseline. Will decrease IV fluids. Will monitor renal function regularly. 12/18/2019 The patient's renal function is in fact stage IV at this time. We will continue to monitor closely, avoid nephrotoxic medications if possible and adjust other medications accordingly. 12/19/2019 Her renal function is improved. She in fact is slightly better than her recent baseline. We will continue current management and monitor her function. She is urinating but she is incontinent and so it is difficult to monitor. I would rather not place a Skelton catheter at this time. 12/20/2019 Kidney function continues to slowly improve (10) Nonalcoholic steatohepatitis (HEREDIA) Is this a current diagnosis for this admission?: Yes Plan: 12/17/2019 Supportive care at this point. 12/18/2019 I have ordered an abdominal ultrasound to get current imaging. 12/19/2019 No ascites but cirrhosis noted. I confirmed with patient's daughter that she was never a drinker. The progressing liver disease could be causing much of the abnormalities noted above. 12/20/2019 Patient may likely be in end-stage liver disease. (11) Abnormal gait Is this a current diagnosis for this admission?: Yes Plan: 12/17/2019 Evidently the patient has had falls. The most recent apparently was her throwing herself out of the wheelchair. I have asked physical therapy to evaluate the patient. 12/18/2019 Await physical therapy's evaluation 12/19/2019 The patient is quite weak. She did participate with physical therapy earlier. She will benefit from ongoing treatment. 12/20/2019 Physical therapy (12) Hypoglycemia associated with type 2 diabetes mellitus Is this a current diagnosis for this admission?: Yes Plan: 12/17/2019 On her listed home doses of insulin she is very hyperglycemic. This could be because she is not eating much. I have markedly decreased her Lantus 20 He told family will Continue Accu-Cheks and sliding scale. Continue to monitor closely. Hypoglycemic protocol is in place. 12/18/2019 I have significantly decreased her dose of Lantus. Her Accu-Cheks are much better. I would like to see Accu-Cheks between 101-150. If she starts to drift higher I will increase her Lantus slowly. 12/19/2019 Hypoglycemia resolved. See above. (13) Abnormal EEG Is this a current diagnosis for this admission?: Yes Plan: 12/20/2019 Patient with markedly abnormal EEG. Considering the constellation of pathology this may be difficult to treat. I will obtain an MRI study. - Time Time Spent with patient: 15-24 minutes Medications reviewed and adjusted accordingly: Yes
[2019-12-20] MEDS ORDERED: MAGNESIUM SULFATE/D5W 1 GM/100 ML RTUPB IV ONE (14:00)
--- NOTE | 2019-12-20 14:03 | NEURO WORKBENCH EEG REPORT ---
EEG Report Patient: Ingrid Vincent ID: [id number] Referring Doctor: Don Stevenson Date: 12/20/2019 Reason for study: Evaluate Epileptiform activity Medications: Lipitor, Cipro, Colace, Prozac, Lasix, Gabapentin, Insulin, Lactulose, Magnesium, Ritalin, Flagyl, Protonix, K-Phos History: This is a 64 year old male with a history of HTN, Hypercholesterolemia, Asthma, GERD, ESRD, Arthritis, Depression, DM, Liver cirrhosis, who was admitted with encephalopathy. The patient is legally blind. This EEG was requested for evaluation of epileptiform activity. EEG Interpretation There were spontaneous eye openings or closings, and the EEG is reactive. However, no posterior dominant rhythm was present. The backgound EEG shows diffuse polymorphic 4-6 Hz theta activity with intermixed polymorphic 1-3 Hz delta activity. There were rare periods lasting a couple seconds of global amplitude attenuation. At times, the amplitude over the right hemisphere (right temporal region in particular) appeared somewhat lower amplitude compared to the left. However, frequent and prominent artifact often obscured the right temporal region. Photic stimulation was done and no appreciable photic driving was not noted. There were occasional Generalized Periodic Discharges (GPDs), at times with an anterior to posterior lag and triphasic morphology. The GPDs did not ever become an ictal pattern of 3Hz or greater. The GPDs were often poorly formed, and at times appeared to be fragmentary and occipitally predominant. There were no seizures noted. There were occasional poorly formed, sharply contoured waveform in the left temporal region but these did not appear definitively epileptiform in etiology. The EKG showed a regular rhythm with rates typically in the 60-70 range. EEG Impression This is a markedly abnormal EEG due to diffuse background slowing and the presence of occasional Generalized Periodic Discharges (GPDs) which at times appeared triphasic in etiology. This EEG is consistent with diffuse cerebral dysfunction which is non-specific for etiology. GPDs are of uncertain clinical significance, but in general are associated with an increased risk of seizures, although no seizures occurred during this recording. GPDs can be seen in a variety of clinical settings, including metabolic derangements which might be relevant in this clinical setting. There was at times the suggestion of lower background amplitudes over the right hemisphere which is of uncertain clinical significance, and cerebral imaging may be warranted. Clinical correlation is needed. INTERPRETING NEUROLOGIST: Joshua Noel MD Board certified by the [place] [employer] in Neurology, Clinical Neurophysiology, and Sleep Medicine [facility]
--- NOTE | 2019-12-20 15:39 | PSYCHOLOGICAL NOTE ---
Psych Note - Psych Note Date seen by psych provider: 12/15/19 Time seen by psych provider: 10:20 - [id number] Psych Note: Presenting Problem: Patient is a 64 year old female who [facility] for auditory and visual hallucinations with persecutory delusions a man from the TV trying to hurt her). Patient reported she was in the hospital. She called it a special care hospital. She knew she was in [place]. Patient stated "I got confused" and denied it ever happening before. She denied hearing or seeing a man from TV since getting rest in the ED. Patient stated she had not been sleeping well and did get some rest/sleep. She denied MH history. She identified her granddaughter resides with her and her daughter lives locally. Patient stated her daughter puts her medications out for her to take. Patient denied SI/HI. Patient was alert and oriented to self, person, place, and situation. Mood was euthymic with congruent affect. She denied current SI/HI and these were never presenting concerns. Patient did not appear to be responding to internal stimuli as evidenced by fair eye contact and answering questions appropriately when addressed. Thought processes were linear. Conversational speech was within normal limits for tone and prosody and a bit low in rate. Intellectual abilities are estimated to be average. Insight, judgment and impulse control were fair as evidenced by awareness that she had been confused as she described it. Chart review revealed EMS reported patient endorsed auditory and visual hallucinations for the past 2 days and that someone's going to hurt her. She lives at home, granddaughter typically stays with her (recently hospitalized for substance abuse treatment). Daughter informed medical staff 2 days ago patient called saying a man on TV threatened her. Medical staff documentation noted when patient first arrived to ED she mentioned a man on the TV wanting to hurt her, he keeps talking about molesting children and she tries to change the channel but he's just always there. Patient noted not sleeping in 2 days. Medical concerns include: WBC 2.6L, as well as many Chemistry labs being all over. Clinical Presentation: AMS Psychosis (Auditory and visual hallucinations of a man from TV wanting to hurt her and talking about molesting children) Impression/Plan: Patient is cleared from acute psychiatric services. There are medical concerns with low WBC and Chemistry labs being all over the place. She also had not slept in 2 days. She is being medically admitted. Consulted with Dr. Harley regarding the management and care of patient. ED Physician in agreement with recommendations. Please re consult [facility] if after medical conditions have stabilized there are still mental health concerns.
[2019-12-20] MEDS: ALBUMIN HUMAN 12.5 GM/50 ML RTUINJ IV SCH ×2 (16:21→16:45)
[2019-12-20] MEDS: ATORVASTATIN CALCIUM 10 MG TABLET PO SCH (21:55)
[2019-12-21] MEDS: NORMAL SALINE 1000 ML 1,000 ML IV PRN (00:51)
[2019-12-21] MEDS: PANTOPRAZOLE SODIUM 40 MG TABLET.DR PO SCH (05:18)
[2019-12-21 06:46] LABS: INTERNATIONAL RATION (INR) 1.56; PROTHROMBIN TIME 18.8 SEC (11.4-15.4)
[2019-12-21 06:47] LABS: FIBRINOGEN 396 mg/dL (209-497)
[2019-12-21 07:01] LABS: ABSOLUTE EOSINOPHILS # (AUTO) 0.1 10^3/uL (0.0-0.6); ABSOLUTE LYMPHOCYTES (AUTO) 0.9 10^3/uL (0.5-4.7); ABSOLUTE MONOCYTES (AUTO) 0.2 10^3/uL (0.1-1.4); ABSOLUTE NEUT (AUTO) 1.2 10^3/uL (1.7-8.2); BASOPHILS % (AUTO) 0.8 % (0-2); EOSINOPHILS % (AUTO) 3.3 % (0-6); HEMATOCRIT 28.1 % (36.0-47.0); HEMOGLOBIN 9.6 g/dL (12.0-15.5); LYMPHOCYTES % (AUTO) 36.4 % (13-45); MEAN CORPUSCULAR HEMOGLOBIN 31.2 pg (27.0-33.4); MEAN CORPUSCULAR VOLUME 92 fl (80-97); MONOCYTES % (AUTO) 7.3 % (3-13); RED BLOOD COUNT 3.07 10^6/uL (3.72-5.28); RED CELL DISTRIBUTION WIDTH 14.3 % (11.5-14.0); SEGMENTED NEUTROPHILS % (AUTO) 52.2 % (42-78); TOTAL CELLS COUNTED % (AUTO) 100 %; WHITE BLOOD COUNT 2.4 10^3/uL (4.0-10.5)
[2019-12-21 07:02] LABS: ALBUMIN 2.8 g/dL (3.5-5.0); ALKALINE PHOSPHATASE 102 U/L (38-126); ANION GAP 5 (5-19); ASPARTATE AMINO TRANSFERASE 60 U/L (14-36); BILIRUBIN,DIRECT 0.2 mg/dL (0.0-0.4); BILIRUBIN,TOTAL 1.2 mg/dL (0.2-1.3); BLOOD UREA NITROGEN 15 mg/dL (7-20); CARBON DIOXIDE 19 mmol/L (22-30); CHLORIDE 114 mmol/L (98-107); GLUCOSE 123 mg/dL (75-110); POTASSIUM 3.8 mmol/L (3.6-5.0); TOTAL PROTEIN 5.6 g/dL (6.3-8.2)
[2019-12-21 07:41] LABS: PLATELET COUNT 72 10^3/uL (150-450)
--- NOTE | 2019-12-21 09:12 | PDOC PROGRESS REPORT ---
Subjective Progress Note for:: 12/21/19 Subjective:: 12/21/2019-comfortably in the bed communicating reasonably. Not in distress. Complaining of right rib cage pain as per the patient she fell at home few weeks ago and pain is increasing from last night. To arrange for x-rays today. Plan is to do the MRI of the brain today because EEG is abnormal. once patient is stable plan is to discharge her home with home health. Reason For Visit: ENCEPHALOPATHY Physical Exam Vital Signs: Temp Pulse Resp BP Pulse Ox 98.2 F 66 20 113/53 L 95 12/21/19 07:34 12/21/19 07:34 12/21/19 07:34 12/21/19 07:34 12/21/19 07:34 Pulse Oximeter Nocturnal Start: 12/19/19 13:55 Freq: RTQ4 Status: Complete Protocol: Document 12/20/19 07:17 CMI (Rec: 12/20/19 07:17 CMI [id number]) Nocturnal Pulse Oximetry Equipment Usage Equipment Discontinued Continuous SpO2 Machine # 3 Intake & Output 12/20/19 12/21/19 12/22/19 06:59 06:59 06:59 Intake Total 1718 3574 Balance 1718 3574 Weight 91.6 kg 89.1 kg General appearance: PRESENT: no acute distress, cooperative, obese Head exam: PRESENT: atraumatic Eye exam: PRESENT: conjunctiva pale, PERRLA Mouth exam: PRESENT: moist, tongue midline Neck exam: ABSENT: carotid bruit, JVD, lymphadenopathy, thyromegaly Respiratory exam: PRESENT: clear to auscultation sandra. ABSENT: rales, rhonchi, wheezes Cardiovascular exam: PRESENT: RRR. ABSENT: diastolic murmur, rubs, systolic murmur Pulses: PRESENT: normal dorsalis pedis pul GI/Abdominal exam: PRESENT: normal bowel sounds, soft. ABSENT: distended, guarding, mass, organolmegaly, rebound, tenderness Rectal exam: PRESENT: deferred Extremities exam: PRESENT: full ROM. ABSENT: calf tenderness, clubbing, pedal edema Neurological exam: PRESENT: alert, awake, oriented to person, oriented to place, oriented to time, oriented to situation, CN II-XII grossly intact. ABSENT: motor sensory deficit Psychiatric exam: PRESENT: appropriate affect, normal mood. ABSENT: homicidal ideation, suicidal ideation Results Laboratory Results: 12/21/19 06:17 12/21/19 06:17 12/21/19 12/21/19 06:17 06:17 WBC 2.4 L RBC 3.07 L Hgb 9.6 L Hct 28.1 L MCV 92 MCH 31.2 MCHC 34.0 RDW 14.3 H Plt Count 72 L Seg Neutrophils % 52.2 Sodium 138.0 Potassium 3.8 Chloride 114 H Carbon Dioxide 19 L Anion Gap 5 BUN 15 Creatinine 1.23 Est GFR ( Amer) 53 L Glucose 123 H Calcium 9.0 Magnesium 1.7 Total Bilirubin 1.2 AST 60 H Alkaline Phosphatase 102 Total Protein 5.6 L Albumin 2.8 L 12/16/19 03:18 Blood Blood Culture - Final NO GROWTH IN 5 DAYS 12/16/19 01:53 Blood Blood Culture (PCR) - Final Staphylococcus Species 12/16/19 12/16/19 12/16/19 04:25 04:25 11:19 Creatine Kinase 35 Troponin I 0.015 < 0.012 12/16/19 16:30 Creatine Kinase Troponin I < 0.012 Impressions: Lumbar Spine CT 12/16/19 01:14 IMPRESSION: Age-indeterminate compression fractures of T11, T12, L1, L2, L3, L5. No retropulsed fracture fragment or CT evidence for significant central canal stenosis. 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 TECHNICAL DOCUMENTATION: Quality ID # [id number]: Final reports with documentation of one or more dose reduction techniques (e.g., Automated exposure control, adjustment of the mA and/or kV according to patient size, use of iterative reconstruction technique) copyright 2011 [employer]- All Rights Reserved Abdomen Ultrasound 12/18/19 00:00 IMPRESSION: Limited evaluation of abdominal structures. Decreased liver size and mild nodular contour compatible with cirrhosis. Splenomegaly. Bilateral pleural effusions. Medical renal disease. Assessment and Plan - Diagnosis (1) Hepatic encephalopathy Is this a current diagnosis for this admission?: Yes Plan: Lactulose 10 mg p.o. every 8 hours. Supportive measures. Discharge planning is likely unable to return to independent setting. 12/17/2019 Ammonia level is down to 18. We will decrease the lactulose but not discontinue altogether. 12/18/2019 Concern is for long-term adverse effects of her encephalopathy. She is is not engage well at the bedside. She cannot tell me the month but could not tell me where she was, that I was her physician or the day of the week. CT scan of the head recently showed microvascular changes. There could be a degree of dementia with this but it is difficult to determine. 12/19/2019 I spoke to the patient's daughter. She confirms no history of alcohol. The jeremias ramos was in the emergency department on December 14 and her ammonia level was 70. On the day of admission she was down to 38 and has subsequently normalized. Normally I would have expected her to perk up and be more interactive but she has not. This could all be cirrhosis however I will check a cortisol level. Her TSH was normal. Am going to institute a short trial of Ritalin twice daily and decrease her Prozac. I would like to phase in a different antidepressant. Her daughter did confirm that she feels that she has been quite depressed for some time now. 12/20/2019 the patient's ammonia level was back in the normal range. She is oriented to person and does not seem to be completely comprehending all of what is going on. He strengthens while she was eating lunch and I was talking to her it is almost childlike the way she focused on her food did not participate in the conversation. 12/21/2019-patient is alert awake communicating well. Not in distress. Comfortably in the bed. EEG is abnormal plan is to arrange for the MRI without contrast today. Patient admitted with altered mental status most likely secondary to hepatic and careful apathy ammonia levels are back to normal. (2) Hyperglycemia due to type 2 diabetes mellitus Qualifiers: Diabetes mellitus dedicated intermodal truck driver insulin use: with intermediate use Qualified Code(s): E11.65 - Type 2 diabetes mellitus with hyperglycemia; Z79.4 - residential (current) use of insulin Is this a current diagnosis for this admission?: Yes Plan: 12/19/2019 The patient had several hypoglycemic Accu-Cheks early in the hospitalization. I have cut way back on her insulin. She is now mostly between 150 and 200. Her daughter did ask if I felt she was on too much insulin previously. It is hard to know because we are not aware of her dietary compliance at home as well as her appetite. Her appetite is decreased here. I will slowly increase long- acting insulin. For this patient a reasonable goal will be 125-150. 12/20/2019 Continue current regimen. Adequate control. 12/21/19-blood sugar today is 123. Stable. Plan is to consult continue insulin sliding scale before meals and at bedtime. It is receiving Lantus 8 units subcu daily. Check for hemoglobin A1c. (3) Hypokalemia Is this a current diagnosis for this admission?: Yes Plan: 12/17/2019 Potassium is 3.5. I will administer 20 mEq IV and increase her oral dose to 20 mEq. Continue to monitor serum potassium levels. 12/18/2019 Continue current regimen of 20 mg orally daily. Hopefully this will keep her in the normal range. 12/19/2019 Potassium normal today. We will continue to monitor with blood work. 12/20/2019 Continue potassium supplementation 12/21/19-serum potassium today is 3.8 hypokalemia is resolving. (4) Pancytopenia Is this a current diagnosis for this admission?: Yes Plan: 12/17/2019 The patient also has anemia. With all 3 cell lines depleted she in fact is pancytopenic. This is most likely from her REEVES. I will discuss with hematology as well. 12/18/2019 White blood cell count is now normal. Patient is no longer pancytopenic she remains a thrombocytopenia and anemia. 12/19/[address] Virk's input. This may all be related to her cirrhosis. We will continue to monitor her CBC. 12/20/2019 Per hematology there is little intervention as this is related to her chronic progressive liver disease 12/21/2019-WBC count is 2.4 along with hemoglobin of 3.6 and a platelet count of 72. Numbers are stable. Is to recheck the labs tomorrow. (5) Thrombocytopenia Is this a current diagnosis for this admission?: Yes Plan: Anticipated secondary to Reeves and without complication, supportive care 12/17/2019 Platelet count has dropped. I have discontinued the DVT prophylaxis dose of heparin. Monitor platelets. 12/18/2019 Platelet counts are in the 80s today up from 66. We will continue to monitor. 12/19/2019 Platelet count decreased again today. We will continue to monitor. Please also see above 12/20/2019 Platelets continue to decline 1620-platelet count is 72,000 today. Improved from [address]772. (6) Leukopenia Qualifiers: Leukopenia type: neutropenia Is this a current diagnosis for this admission?: Yes Plan: 12/17/2019 The white blood cell count dropped. The patient is on ceftriaxone. We will monitor it closely. It could be the patient's initial response to infection. One blood culture bottle has coagulase-negative staph. 12/18/2019 White blood cell count is back in the normal range. And going to add ci profloxacin and metronidazole for possible SBP. Correction of above. Patient was not on ceftriaxone. 12/19/2019 Her white blood cell count dropped below 3.0 again today. I did start her on antibiotics for possible spontaneous bacterial peritonitis. There is no significant ascites. She had one blood culture bottle positive for coagulase- negative staph which is likely a contaminant. I will recheck a CBC. If her white blood cell count continues to go lower I will change her antibiotic therapy. If it begins to recover I will likely keep the current antibiotics for several more days and reassess. 12/20/2019 Still at 2.5. 12/21/19-WBC count is 2400. (7) Anemia Qualifiers: Anemia type: other cause Other causes of anemia: chronic disease, other Qualified Code(s): D63.8 - Anemia in other chronic diseases classified elsewhere Is this a current diagnosis for this admission?: Yes Plan: 12/18/2019 The patient's white blood cell count has rebounded however she still remains anemic. This likely chronic and due to her liver disease. Hematology will be seeing her today and I await Dr. Virk's thoughts.. 12/19/2019 Hemoglobin has fallen again and is back to 10.2. Please also see hematology consult. Her pancytopenia is likely related to her liver disease. 12/20/2019 Hemoglobin is now 9.0. We will continue to monitor. Unfortunately this is likely due to her chronic progressive liver disease 12/21/19-hemoglobin today's 9.6. Stable. (8) Chronic renal failure, stage 3 (moderate) Is this a current diagnosis for this admission?: No Plan: 12/17/2019 Reviewing previous blood work it appears that the patient is at her baseline. Will decrease IV fluids. Will monitor renal function regularly. 12/18/2019 The patient's renal function is in fact stage IV at this time. We will continue to monitor closely, avoid nephrotoxic medications if possible and adjust other m edications accordingly. 12/19/2019 Her renal function is improved. She in fact is slightly better than her recent baseline. We will continue current management and monitor her function. She is urinating but she is incontinent and so it is difficult to monitor. I would rather not place a Skelton catheter at this time. 12/20/2019 Kidney function continues to slowly improve 12/21/2019-serum creatinine today is 1.23. Stable. (9) Abnormal EEG Is this a current diagnosis for this admission?: Yes Plan: 12/20/2019 Patient with markedly abnormal EEG. Considering the constellation of pathology this may be difficult to treat. I will obtain an MRI study. 12/21/2019-patient is going for MRI of the brain without contrast today. (10) Nonalcoholic steatohepatitis (REEVES) Is this a current diagnosis for this admission?: Yes Plan: 12/17/2019 Supportive care at this point. 12/18/2019 I have ordered an abdominal ultrasound to get current imaging. 12/19/2019 No ascites but cirrhosis noted. I confirmed with patient's daughter that she was never a drinker. The progressing liver disease could be causing much of the abnormalities noted above. 12/20/2019 Patient may likely be in end-stage liver disease. (11) Ingrown toenail of right foot Is this a current diagnosis for this admission?: No Plan: 12/17/2019 This is likely causing the tenderness in the toe. There is no purulent discharge. It is not markedly swollen or red. Application of topical antibiotic ointment will likely soften the skin at the nail and she can address this as an outpatient. 12/18/2019 Apply bacitracin twice daily 12/19/2019 Continue conservative care (12) Abnormal gait Is this a current diagnosis for this admission?: Yes Plan: 12/17/2019 Evidently the patient has had falls. The most recent apparently was her throwing herself out of the wheelchair. I have asked physical therapy to evaluate the patient. 12/18/2019 Await physical therapy's evaluation 12/19/2019 The patient is quite weak. She did participate with physical therapy earlier. She will benefit from ongoing treatment. 12/20/2019 Physical therapy
[2019-12-21] MEDS: FLUOXETINE HCL 20 MG CAPSULE PO SCH (09:56)
[2019-12-21] MEDS: LACTULOSE SYRUP 20 GM/30 ML UDCUP PO SCH ×2 (09:56→19:02)
[2019-12-21] MEDS: PHOSPHORUS #1 250 MG TABLET PO SCH ×3 (09:56→19:02)
[2019-12-21] MEDS: FUROSEMIDE 20 MG TABLET PO SCH (09:56)
[2019-12-21] MEDS: GABAPENTIN 300 MG CAPSULE PO SCH ×2 (09:57→21:28)
[2019-12-21] MEDS: DOCUSATE SODIUM 100 MG CAPSULE PO SCH ×2 (09:58→18:48)
[2019-12-21] MEDS: POTASSIUM CHLORIDE 10 MEQ TABLET.ER PO SCH (09:58)
[2019-12-21] MEDS: VERAPAMIL HCL 180 MG TABLET.SA PO SCH (09:58)
[2019-12-21] MEDS: TOLTERODINE TARTRATE 1 MG TABLET PO SCH (09:59)
[2019-12-21] MEDS: BACITRACIN ZINC OINTMENT 15 GM TP SCH ×2 (09:59→19:13)
[2019-12-21] MEDS: MAGNESIUM OXIDE 400 MG TABLET PO SCH ×3 (10:04→19:02)
[2019-12-21] MEDS: METHYLPHENIDATE HCL 5 MG TABLET PO SCH ×2 (10:04→14:00)
[2019-12-21] MEDS: INSULIN LISPRO 100 UNIT/ML 3 ML VIAL SUBCUT SCH ×3 (10:08→19:02)
[2019-12-21] MEDS: INSULIN GLARGINE,HUM.REC.ANLOG 1,000 UNIT/10 ML VIAL SUBCUT SCH (10:08)
[2019-12-21] MEDS: CEFTRIAXONE 1 GM/D5W RTU 1 GM/50 ML RTUPB IV SCH (14:01)
--- NOTE | 2019-12-21 20:14 | RADIOLOGY REPORT (SQ) ---
EXAM DESCRIPTION: XR RIBS UNILATERAL WITH CHEST COMPLETED DATE/TME: 12/21/2019 00:00 CLINICAL HISTORY: 64 years, Female, rt rib cage pain COMPARISON: Prior chest radiograph from 08/04/2015 NUMBER OF VIEWS: 4 TECHNIQUE: Frontal and oblique radiographs of the chest were acquired LIMITATIONS: None. FINDINGS: Cardiopericardial silhouette is enlarged. Mediastinal contours are stable. Lung volumes are low. Patchy left basilar opacity is evident. No pneumothorax. There may be a small left pleural effusion given the presence of blunting of the left costophrenic sulcus. Surgical clips project over the right upper quadrant. No definite rib fractures are identified. IMPRESSION: No definite rib fracture identified. Patchy left basilar opacity. Consider atelectasis or pneumonia to include aspiration. In addition, there may be a trace left pleural effusion. copyright 2010 [employer]- All Rights Reserved
--- NOTE | 2019-12-21 20:20 | RADIOLOGY REPORT (SQ) ---
EXAM DESCRIPTION: MR BRAIN WITHOUT IV CONTRAST COMPLETED DATE/TME: 12/21/2019 00:00 CLINICAL HISTORY: 64 years, Female, altered mental status COMPARISON: Noncontrast CT 06/25/2016. TECHNIQUE: Multisequence multiplanar images of the brain without gadolinium. FINDINGS: Normal size ventricles. Mild cortical atrophy. Gradient echo images demonstrate tiny hypointense lesion at the junction of the posterior body right lateral ventricle and the brain. Could be related to choroid plexus or calcification. No abnormal diffusion. No acute intra-axial or extra-axial abnormalities. Minimal chronic mucosal thickening right posterior ethmoid sinus. Minimal/at nasopharyngeal cavity soft tissue structure mildly tilted to the left. 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 Possible a simple mucus. IMPRESSION: 1. Brain without acute findings. Mild cortical atrophy. 2. Partially visualized nasopharyngeal cavity structure more likely not significant.
--- NOTE | 2019-12-21 20:29 | RADIOLOGY REPORT (SQ) ---
EXAM DESCRIPTION: XR SHOULDER 2 OR MORE VIEWS COMPLETED DATE/TME: 12/21/2019 00:00 CLINICAL HISTORY: 64 years, Female, PAIN COMPARISON: None. NUMBER OF VIEWS: 3 TECHNIQUE: Internal/external and transscapular Y projections were acquired LIMITATIONS: None. FINDINGS: Focal cortical irregularity is suspected about the surgical neck of the humerus, raising the possibility of a subtle nondisplaced fracture. Mild AC joint arthrosis is evident, designated by marginal osteophyte formation. Visualized portions of the right lung appear overall clear upon correlation with the recent chest radiograph. IMPRESSION: Questionable nondisplaced fracture involving the surgical neck of the humerus. Correlate for recent trauma. Mild AC joint arthrosis. copyright 2010 [employer]- All Rights Reserved
[2019-12-21] MEDS: ATORVASTATIN CALCIUM 10 MG TABLET PO SCH (21:28)
[2019-12-22] MEDS: PANTOPRAZOLE SODIUM 40 MG TABLET.DR PO SCH (05:32)
[2019-12-22 05:59] LABS: ABSOLUTE EOSINOPHILS # (AUTO) 0.1 10^3/uL (0.0-0.6); ABSOLUTE LYMPHOCYTES (AUTO) 0.8 10^3/uL (0.5-4.7); ABSOLUTE MONOCYTES (AUTO) 0.2 10^3/uL (0.1-1.4); ABSOLUTE NEUT (AUTO) 1.1 10^3/uL (1.7-8.2); BASOPHILS % (AUTO) 0.6 % (0-2); EOSINOPHILS % (AUTO) 3.1 % (0-6); HEMATOCRIT 27.9 % (36.0-47.0); HEMOGLOBIN 9.5 g/dL (12.0-15.5); LYMPHOCYTES % (AUTO) 37.8 % (13-45); MEAN CORPUSCULAR HEMOGLOBIN 31.3 pg (27.0-33.4); MEAN CORPUSCULAR VOLUME 92 fl (80-97); MONOCYTES % (AUTO) 8.1 % (3-13); RED BLOOD COUNT 3.03 10^6/uL (3.72-5.28); RED CELL DISTRIBUTION WIDTH 14.1 % (11.5-14.0); SEGMENTED NEUTROPHILS % (AUTO) 50.4 % (42-78); TOTAL CELLS COUNTED % (AUTO) 100 %; WHITE BLOOD COUNT 2.2 10^3/uL (4.0-10.5)
[2019-12-22 06:17] LABS: ALBUMIN 2.7 g/dL (3.5-5.0); ALKALINE PHOSPHATASE 96 U/L (38-126); ANION GAP 5 (5-19); ASPARTATE AMINO TRANSFERASE 52 U/L (14-36); BILIRUBIN,DIRECT 0.1 mg/dL (0.0-0.4); BILIRUBIN,TOTAL 0.9 mg/dL (0.2-1.3); BLOOD UREA NITROGEN 16 mg/dL (7-20); CALCIUM 9.1 mg/dL (8.4-10.2); CARBON DIOXIDE 20 mmol/L (22-30); CHLORIDE 113 mmol/L (98-107); GLUCOSE 131 mg/dL (75-110); POTASSIUM 3.7 mmol/L (3.6-5.0); TOTAL PROTEIN 5.4 g/dL (6.3-8.2)
[2019-12-22 06:45] LABS: PLATELET COUNT 75 10^3/uL (150-450)
[2019-12-22] MEDS: INSULIN LISPRO 100 UNIT/ML 3 ML VIAL SUBCUT SCH ×3 (09:29→17:48)
--- NOTE | 2019-12-22 09:37 | PDOC PROGRESS REPORT ---
Subjective Progress Note for:: 12/22/19 Subjective:: 12/21/2019-comfortably in the bed communicating reasonably. Not in distress. Complaining of right rib cage pain as per the patient she fell at home few weeks ago and pain is increasing from last night. To arrange for x-rays today. Plan is to do the MRI of the brain today because EEG is abnormal. once patient is stable plan is to discharge her home with home health. 12/22/2019-no acute events in the last 24 hours. Patient complaining of left- sided rib cage pain and left shoulder pain yesterday x-ray suggestive of questionable fracture in the surgical neck of the left humerus. I spoke to Dr. Trinh he thinks it is a wall fracture but is going to see the patient today anyway. Discussed the plan of care with patient's daughter Lawanda she wants to take her home once she is ready and requesting for home health services. Reason For Visit: ENCEPHALOPATHY Physical Exam Vital Signs: Temp Pulse Resp BP Pulse Ox 98.3 F 69 19 116/46 L 99 12/22/19 07:17 12/22/19 07:17 12/22/19 07:17 12/22/19 07:17 12/22/19 07:17 Pulse Oximeter Nocturnal Start: 12/19/19 13:55 Freq: RTQ4 Status: Complete Protocol: Document 12/20/19 07:17 CMI (Rec: 12/20/19 07:17 CMI [id number]) Nocturnal Pulse Oximetry Equipment Usage Equipment Discontinued Continuous SpO2 Machine # 3 Intake & Output 12/21/19 12/22/19 12/23/19 06:59 06:59 06:59 Intake Total 3574 230 Balance 3574 230 Weight 89.1 kg 92.7 kg General appearance: PRESENT: obese Head exam: PRESENT: atraumatic Eye exam: PRESENT: PERRLA Teeth exam: PRESENT: poor dentation Neck exam: ABSENT: carotid bruit, JVD, lymphadenopathy, thyromegaly Respiratory exam: PRESENT: decreased breath sounds Cardiovascular exam: PRESENT: RRR. ABSENT: diastolic murmur, rubs, systolic mu rmur GI/Abdominal exam: PRESENT: normal bowel sounds, soft. ABSENT: distended, guarding, mass, organolmegaly, rebound, tenderness Rectal exam: PRESENT: deferred Extremities exam: PRESENT: full ROM. ABSENT: calf tenderness, clubbing, pedal edema Neurological exam: PRESENT: alert, awake, oriented to person, oriented to place, oriented to time, oriented to situation, CN II-XII grossly intact. ABSENT: motor sensory deficit Results Laboratory Results: 12/22/19 05:29 12/22/19 05:29 12/22/19 12/22/19 05:29 05:29 WBC 2.2 L RBC 3.03 L Hgb 9.5 L Hct 27.9 L MCV 92 MCH 31.3 MCHC 34.0 RDW 14.1 H Plt Count 75 L Seg Neutrophils % 50.4 Sodium 138.0 Potassium 3.7 Chloride 113 H Carbon Dioxide 20 L Anion Gap 5 BUN 16 Creatinine 1.10 Est GFR ( Amer) > 60 Glucose 131 H Calcium 9.1 Magnesium 1.7 Total Bilirubin 0.9 AST 52 H Alkaline Phosphatase 96 Total Protein 5.4 L Albumin 2.7 L 12/16/19 03:18 Blood Blood Culture - Final NO GROWTH IN 5 DAYS 12/16/19 01:53 Blood Blood Culture (PCR) - Final Staphylococcus Species 12/16/19 01:53 Blood Blood Culture - Final Staphylococcus Capitis Peptostreptococcus Species 12/16/19 12/16/19 12/16/19 04:25 04:25 11:19 Creatine Kinase 35 Troponin I 0.015 < 0.012 12/16/19 16:30 Creatine Kinase Troponin I < 0.012 Impressions: Lumbar Spine CT 12/16/19 01:14 IMPRESSION: Age-indeterminate compression fractures of T11, T12, L1, L2, L3, L5. No retropulsed fracture fragment or CT evidence for significant central canal stenosis. 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 TECHNICAL DOCUMENTATION: Quality ID # 436: Final reports with documentation of one or more dose reduction techniques (e.g., Automated exposure control, adjustment of the mA and/or kV according to patient size, use of iterative reconstruction technique) copyright 2011 [employer]- All Rights Reserved Abdomen Ultrasound 12/18/19 00:00 IMPRESSION: Limited evaluation of abdominal structures. Decreased liver size and mild nodular contour compatible with cirrhosis. Splenomegaly. Bilateral pleural effusions. Medical renal disease. Head MRI 12/21/19 00:00 IMPRESSION: 1. Brain without acute findings. Mild cortical atrophy. 2. Partially visualized nasopharyngeal cavity structure more likely not significant. Ribs w/Chest X-Ray 12/21/19 00:00 IMPRESSION: No definite rib fracture identified. Patchy left basilar opacity. Consider atelectasis or pneumonia to include aspiration. In addition, there may be a trace left pleural effusion. copyright 2010 [employer]- All Rights Reserved Shoulder X-Ray 12/21/19 00:00 IMPRESSION: Questionable nondisplaced fracture involving the surgical neck of the humerus. Correlate for recent trauma. Mild AC joint arthrosis. copyright 2010 [employer]- All Rights Reserved Assessment and Plan - Diagnosis (1) Hepatic encephalopathy Is this a current diagnosis for this admission?: Yes Plan: Lactulose 10 mg p.o. every 8 hours. Supportive measures. Discharge planning is likely unable to return to independent setting. 12/17/2019 Ammonia level is down to 18. We will decrease the lactulose but not discontinue altogether. 12/18/2019 Concern is for long-term adverse effects of her encephalopathy. She is is not engage well at the bedside. She cannot tell me the month but could not tell me where she was, that I was her physician or the day of the week. CT scan of the head recently showed microvascular changes. There could be a degree of dementia with this but it is difficult to determine. 12/19/2019 I spoke to the patient's daughter. She confirms no history of alcohol. The patient was in the emergency department on December 14 and her ammonia level was 70. On the day of admission she was down to 38 and has subsequently normalized. Normally I would have expected her to perk up and be more interactive but she has not. This could all be cirrhosis however I will check a cortisol level. Her TSH was normal. Am going to institute a short trial of Ritalin twice daily and decrease her Prozac. I would like to phase in a different antidepressant. Her daughter did confirm that she feels that she has been quite depressed for some time now. 12/20/2019 the patient's ammonia level was back in the normal range. She is oriented to person and does not seem to be completely comprehending all of what is going on. He strengthens while she was eating lunch and I was talking to her it is almost childlike the way she focused on her food did not participate in the conversation. 12/21/2019-patient is alert awake communicating well. Not in distress. Comfortably in the bed. EEG is abnormal plan is to arrange for the MRI without contrast today. Patient admitted with altered mental status most likely secondary to hepatic and careful apathy ammonia levels are back to normal. 12/22/19-patient admitted with hepatic and coagulopathy which is resolving. This morning alert and awake communicating well. EEG is abnormal but MRI of the brai n without any stroke. (2) Hyperglycemia due to type 2 diabetes mellitus Qualifiers: Diabetes mellitus termite exterminator insulin use: with termite exterminator use Qualified Code(s): E11.65 - Type 2 diabetes mellitus with hyperglycemia; Z79.4 - nursing home (current) use of insulin Is this a current diagnosis for this admission?: Yes Plan: 12/19/2019 The patient had several hypoglycemic Accu-Cheks early in the hospitalization. I have cut way back on her insulin. She is now mostly between 150 and 200. Her daughter did ask if I felt she was on too much insulin previously. It is hard to know because we are not aware of her dietary compliance at home as well as her appetite. Her appetite is decreased here. I will slowly increase long- acting insulin. For this patient a reasonable goal will be 125-150. 12/20/2019 Continue current regimen. Adequate control. 12/21/19-blood sugar today is 123. Stable. Plan is to consult continue insulin sliding scale before meals and at bedtime. It is receiving Lantus 8 units subcu daily. Check for hemoglobin A1c. 12/22/2019-latest blood sugar is 130, hemoglobin A1c is 4.1. Plan is to discontinue Lantus from today. To continue insulin sliding scale before meals and at bedtime. (3) Hypokalemia Is this a current diagnosis for this admission?: Yes Plan: 12/17/2019 Potassium is 3.5. I will administer 20 mEq IV and increase her oral dose to 20 mEq. Continue to monitor serum potassium levels. 12/18/2019 Continue current regimen of 20 mg orally daily. Hopefully this will keep her in the normal range. 12/19/2019 Potassium normal today. We will continue to monitor with blood work. 12/20/2019 Continue potassium supplementation 12/21/19-serum potassium today is 3.8 hypokalemia is resolving. 12/22/2019-serum potassium today 3.7 hypokalemia is resolved. (4) Pancytopenia Is this a current diagnosis for this admission?: Yes Plan: 12/17/2019 The patient also has anemia. With all 3 cell lines depleted she in fact is pancytopenic. This is most likely from her REEVES. I will discuss with hematology as well. 12/18/2019 White blood cell count is now normal. Patient is no longer pancytopenic she remains a thrombocytopenia and anemia. 12/19/[address] Virk's input. This may all be related to her cirrhosis. We will continue to monitor her CBC. 12/20/2019 Per hematology there is little intervention as this is related to her chronic progressive liver disease 12/21/2019-WBC count is 2.4 along with hemoglobin of 3.6 and a platelet count of 72. Numbers are stable. Is to recheck the labs tomorrow. 12/22/2019-WBC count is 2200 stable. Platelet count is 75,000 slightly improved. (5) Thrombocytopenia Is this a current diagnosis for this admission?: Yes Plan: Anticipated secondary to Reeves and without complication, supportive care 12/17/2019 Platelet count has dropped. I have discontinued the DVT prophylaxis dose of he marjan. Monitor platelets. 12/18/2019 Platelet counts are in the 80s today up from 66. We will continue to monitor. 12/19/2019 Platelet count decreased again today. We will continue to monitor. Please also see above 12/20/2019 Platelets continue to decline 12/21/19-platelet count is 72,000 today. Improved [place] [id number]. 12/22/2019-platelet count is 75,000 shows slight improvement. (6) Leukopenia Qualifiers: Leukopenia type: neutropenia Is this a current diagnosis for this admission?: Yes Plan: 12/17/2019 The white blood cell count dropped. The patient is on ceftriaxone. We will monitor it closely. It could be the patient's initial response to infection. One blood culture bottle has coagulase-negative staph. 12/18/2019 White blood cell count is back in the normal range. And going to add cip rofloxacin and metronidazole for possible SBP. Correction of above. Patient was not on ceftriaxone. 12/19/2019 Her white blood cell count dropped below 3.0 again today. I did start her on antibiotics for possible spontaneous bacterial peritonitis. There is no significant ascites. She had one blood culture bottle positive for coagulase- negative staph which is likely a contaminant. I will recheck a CBC. If her white blood cell count continues to go lower I will change her antibiotic therapy. If it begins to recover I will likely keep the current antibiotics for several more days and reassess. 12/20/2019 Still at 2.5. 12/21/19-WBC count is 2400. 12/22/2019-WBC count is 2200 today. (7) Anemia Qualifiers: Anemia type: other cause Other causes of anemia: chronic disease, other Qualified Code(s): D63.8 - Anemia in other chronic diseases classified elsewhere Is this a current diagnosis for this admission?: Yes Plan: 12/18/2019 The patient's white blood cell count has rebounded however she still remains anemic. This likely chronic and due to her liver disease. Hematology will be seeing her today and I await Dr. Virk's thoughts.. 12/19/2019 Hemoglobin has fallen again and is back to 10.2. Please also see hematology consult. Her pancytopenia is likely related to her liver disease. 12/20/2019 Hemoglobin is now 9.0. We will continue to monitor. Unfortunately this is likely due to her chronic progressive liver disease 12/21/19-hemoglobin today's 9.6. Stable. 12/22/2019-hemoglobin is 9.5 stable. (8) Chronic renal failure, stage 3 (moderate) Is this a current diagnosis for this admission?: No Plan: 12/17/2019 Reviewing previous blood work it appears that the patient is at her baseline. Will decrease IV fluids. Will monitor renal function regularly. 12/18/2019 The patient's renal function is in fact stage IV at this time. We will continue to monitor closely, avoid nephrotoxic medications if possible and adjust other medications accordingly. 12/19/2019 Her renal function is improved. She in fact is slightly better than her recent baseline. We will continue current management and monitor her function. She is urinating but she is incontinent and so it is difficult to monitor. I would rather not place a Skelton catheter at this time. 12/20/2019 Kidney function continues to slowly improve 12/21/2019-serum creatinine today is 1.23. Stable. 12/22/2019-serum creatinine is 1.1 improving. (9) Abnormal EEG Is this a current diagnosis for this admission?: Yes Plan: 12/20/2019 Patient with markedly abnormal EEG. Considering the constellation of pathology this may be difficult to treat. I will obtain an MRI study. 12/21/2019-patient is going for MRI of the brain without contrast today. 12/22/2019-MRI of the brain without contrast was done yesterday no acute pathology was seen. Patient alert awake communicating well this morning. (10) Nonalcoholic steatohepatitis (REEVES) Is this a current diagnosis for this admission?: Yes Plan: 12/17/2019 Supportive care at this point. 12/18/2019 I have ordered an abdominal ultrasound to get current imaging. 12/19/2019 No ascites but cirrhosis noted. I confirmed with patient's daughter that she was never a drinker. The progressing liver disease could be causing much of the abnormalities noted above. 12/20/2019 Patient may likely be in end-stage liver disease. (11) Ingrown toenail of right foot Is this a current diagnosis for this admission?: No (12) Abnormal gait Is this a current diagnosis for this admission?: Yes Plan: 12/17/2019 Evidently the patient has had falls. The most recent apparently was her throwing herself out of the wheelchair. I have asked physical therapy to evaluate the patient. 12/18/2019 Await physical therapy's evaluation 12/19/2019 The patient is quite weak. She did participate with physical therapy earlier. She will benefit from ongoing treatment. 12/20/2019 Physical therapy 1720-discussed the plan of care with the patient's daughter Lawanda she is requesting discharge home with home health when the patient is stable. (13) Positive blood culture Is this a current diagnosis for this admission?: Yes Plan: 12/22/2019-blood cultures are positive for Staphylococcus capitis and Peptostreptococcus. Presently on ceftriaxone. Plan is to continue the antibiotic therapy for another 48 hours. (14) Left humeral fracture Is this a current diagnosis for this admission?: No Plan: 12/22/2019-x-rays of the left shoulder was done yesterday shows questionable left surgical neck fracture consultation with Dr. Trinh was requested. He is going to see the patient today.
[2019-12-22] MEDS ORDERED: ONDANSETRON HCL INJ/PF 4 MG/2 ML SDV IV PRN (10:05)
[2019-12-22] MEDS: GABAPENTIN 300 MG CAPSULE PO SCH ×2 (11:23→21:01)
[2019-12-22] MEDS: FUROSEMIDE 20 MG TABLET PO SCH (11:23)
[2019-12-22] MEDS: TOLTERODINE TARTRATE 1 MG TABLET PO SCH (11:23)
[2019-12-22] MEDS: POTASSIUM CHLORIDE 10 MEQ TABLET.ER PO SCH (11:23)
[2019-12-22] MEDS: PHOSPHORUS #1 250 MG TABLET PO SCH ×3 (11:23→16:59)
[2019-12-22] MEDS: FLUOXETINE HCL 20 MG CAPSULE PO SCH (11:24)
[2019-12-22] MEDS: VERAPAMIL HCL 180 MG TABLET.SA PO SCH (11:24)
[2019-12-22] MEDS: BACITRACIN ZINC OINTMENT 15 GM TP SCH ×2 (11:24→16:59)
[2019-12-22] MEDS: MAGNESIUM OXIDE 400 MG TABLET PO SCH ×3 (11:24→16:59)
[2019-12-22] MEDS: LACTULOSE SYRUP 20 GM/30 ML UDCUP PO SCH ×2 (11:24→16:59)
[2019-12-22] MEDS: METHYLPHENIDATE HCL 5 MG TABLET PO SCH ×2 (11:24→16:19)
[2019-12-22] MEDS: DOCUSATE SODIUM 100 MG CAPSULE PO SCH ×2 (11:25→17:00)
[2019-12-22] MEDS: CEFTRIAXONE 1 GM/D5W RTU 1 GM/50 ML RTUPB IV SCH (16:58)
[2019-12-22] MEDS: ATORVASTATIN CALCIUM 10 MG TABLET PO SCH (21:01)
[2019-12-23] MEDS: PANTOPRAZOLE SODIUM 40 MG TABLET.DR PO SCH (05:16)
[2019-12-23 06:46] LABS: ABSOLUTE EOSINOPHILS # (AUTO) 0.1 10^3/uL (0.0-0.6); ABSOLUTE LYMPHOCYTES (AUTO) 0.9 10^3/uL (0.5-4.7); ABSOLUTE MONOCYTES (AUTO) 0.2 10^3/uL (0.1-1.4); ABSOLUTE NEUT (AUTO) 1.3 10^3/uL (1.7-8.2); BASOPHILS % (AUTO) 0.6 % (0-2); EOSINOPHILS % (AUTO) 3.7 % (0-6); HEMATOCRIT 29.3 % (36.0-47.0); HEMOGLOBIN 9.9 g/dL (12.0-15.5); MEAN CORPUSCULAR HGB CONC 33.7 g/dL (32.0-36.0); MEAN CORPUSCULAR VOLUME 92 fl (80-97); MONOCYTES % (AUTO) 7.5 % (3-13); RED BLOOD COUNT 3.18 10^6/uL (3.72-5.28); RED CELL DISTRIBUTION WIDTH 14.6 % (11.5-14.0); SEGMENTED NEUTROPHILS % (AUTO) 52.2 % (42-78); TOTAL CELLS COUNTED % (AUTO) 100 %; WHITE BLOOD COUNT 2.5 10^3/uL (4.0-10.5)
[2019-12-23 07:00] LABS: ALBUMIN 2.7 g/dL (3.5-5.0); ALKALINE PHOSPHATASE 98 U/L (38-126); ASPARTATE AMINO TRANSFERASE 47 U/L (14-36); BILIRUBIN,DIRECT 0.1 mg/dL (0.0-0.4); BILIRUBIN,TOTAL 0.8 mg/dL (0.2-1.3); BLOOD UREA NITROGEN 16 mg/dL (7-20); CALCIUM 9.3 mg/dL (8.4-10.2); GLUCOSE 115 mg/dL (75-110); TOTAL PROTEIN 5.4 g/dL (6.3-8.2)
[2019-12-23 07:05] LABS: ANION GAP 5 (5-19); CARBON DIOXIDE 21 mmol/L (22-30); CHLORIDE 114 mmol/L (98-107)
[2019-12-23 07:35] LABS: PLATELET COUNT 89 10^3/uL (150-450)
[2019-12-23] MEDS: PHOSPHORUS #1 250 MG TABLET PO SCH ×3 (08:12→17:22)
[2019-12-23] MEDS: METHYLPHENIDATE HCL 5 MG TABLET PO SCH ×2 (08:13→13:04)
[2019-12-23] MEDS: MAGNESIUM OXIDE 400 MG TABLET PO SCH ×3 (08:13→17:22)
[2019-12-23] MEDS: INSULIN LISPRO 100 UNIT/ML 3 ML VIAL SUBCUT SCH ×3 (08:13→17:27)
[2019-12-23] MEDS: BACITRACIN ZINC OINTMENT 15 GM TP SCH ×2 (10:00→17:28)
[2019-12-23] MEDS: LACTULOSE SYRUP 20 GM/30 ML UDCUP PO SCH ×2 (10:32→17:28)
[2019-12-23] MEDS: FUROSEMIDE 20 MG TABLET PO SCH (10:33)
[2019-12-23] MEDS: FLUOXETINE HCL 20 MG CAPSULE PO SCH (10:33)
[2019-12-23] MEDS: GABAPENTIN 300 MG CAPSULE PO SCH (10:33)
[2019-12-23] MEDS: POTASSIUM CHLORIDE 10 MEQ TABLET.ER PO SCH (10:33)
[2019-12-23] MEDS: DOCUSATE SODIUM 100 MG CAPSULE PO SCH ×2 (10:34→17:28)
[2019-12-23] MEDS: VERAPAMIL HCL 180 MG TABLET.SA PO SCH (10:36)
[2019-12-23] MEDS: TOLTERODINE TARTRATE 1 MG TABLET PO SCH (10:36)
[2019-12-23] MEDS: CEFTRIAXONE 1 GM/D5W RTU 1 GM/50 ML RTUPB IV SCH (13:04)
--- NOTE | 2019-12-23 13:06 | PDOC CONSULTATION ---
Consultation Consult Date: 12/23/19 Provider Consulted: MELIDA OLIVO JR History of Present Illness Admission Date/PCP: 12/16/19 11:48 Patient complains of: right shoulder and flank pain History of Present Illness: MAG ARGUETA is a 64 year old female who reports falling approximately 1 month or maybe 2 months ago. She is not a completely clear historian and some of her history is difficult to ascertain. She has had right flank pain and right shoulder pain since her fall that has been improving over time. She does report significant ecchymosis in the right shoulder into the elbow initially however this is nearly completely resolved. Since that time she has had limited range of motion due to pain she has had limited ability to perform activities of daily living without severe pain. Again this has been improving and she was recently admitted to the hospital with altered mental status including hallucinations delusions of persecution. Apparently her fall potentially includ ed throwing herself on the floor and event to escape capture. She has multiple comorbidities such as stage III chronic kidney disease, diabetes, hepatic cirrhosis, depression, hepatic encephalopathy, gait disorder and morbid obesity. Current pain is a 5 out of 10 worse with deep inspiration in the right flank. Shoulder pain is relatively well controlled as long she is not moving her shoulder. She denies radiating symptoms into the hand. Past Medical History Cardiac Medical History: Reports: Hyperlipidema, Hypertension Denies: Coronary Artery Disease, Myocardial Infarction Pulmonary Medical History: Reports: Asthma Denies: Bronchitis, Chronic Obstructive Pulmonary Disease (COPD), Pneumonia, Tuberculosis Neurological Medical History: Denies: Seizures Endocrine Medical History: Reports: Diabetes Mellitus Type 2 Renal/ Medical History: Reports: End Stage Renal Disease GI Medical History: Reports: Cirrhosis, Gastroesophageal Reflux Disease Musculoskeltal Medical History: Reports: Arthritis Psychiatric Medical History: Reports: Depression Hematology: Denies: Anemia Past Surgical History Past Surgical History: Reports: Appendectomy, Cholecystectomy - lap, Hysterectomy Denies: Pacemaker Social History Lives with: Family Smoking Status: Unknown if Ever Smoked Frequency of Alcohol Use: None Hx Recreational Drug Use: No Drugs: None Hx Prescription Drug Abuse: No - Advance Directive Resuscitation Status: Full Code Family History Family History: Other - Unobtainable. denies: Reviewed & Not Pertinent - Unobtainable Parental Family History Reviewed: No Children Family History Reviewed: NA Sibling(s) Family History Reviewed.: NA Medication/Allergy Home Medications: Atorvastatin Calcium [Lipitor 10 mg Tablet] 10 mg PO QHS 12/15/19 Fluoxetine HCl 40 mg PO DAILY 12/15/19 Furosemide [Lasix] 20 mg PO DAILY 12/15/19 Gabapentin 600 mg PO BID 12/15/19 Insulin Glargine,Hum.rec.anlog [Lantus Insulin 100 Unit/mL Insulin Pen] 70 units SUBCUT QHS 12/15/19 Lisinopril [Prinivil] 10 mg PO DAILY 12/15/19 Meclizine HCl 50 mg PO BID 12/15/19 Pantoprazole Sodium 40 mg PO DAILY 12/15/19 Potassium Chloride [Klor-Con 10 Meq Tablet ER] 10 meq PO DAILY 12/15/19 Tolterodine Tartrate [Detrol] 2 mg PO DAILY 12/15/19 Verapamil HCl [Verapamil ER] 180 mg PO DAILY 12/15/19 Clindamycin HCl 300 mg PO Q8 5 Days #15 capsule 12/23/19 Lactulose [Cephulac Syrup 20 gm/30 ml Udcup] 10 gm PO BID 30 Days #60 gm 12/23/19 Methylphenidate HCl [Ritalin 5 mg Tablet] 5 mg PO BID@0800,1400 30 Days #60 tablet 12/23/19 Allergies/Adverse Reactions: No Known Allergies Allergy (Verified 12/16/19 09:08) Review of Systems All systems: reviewed and no additional remarkable complaints except as stated Review of Systems: Constitutional: ABSENT: anorexia, chills, night sweats Cardiovascular: ABSENT: chest pain Respiratory: ABSENT: dyspnea Gastrointestinal: ABSENT: vomiting Genitourinary: ABSENT: dysuria Integumentary: ABSENT: rash Neurological: POSITIVE: Confusion, memory loss Psychiatric: POSITIVE: hallucinations Hematologic/Lymphatic: ABSENT: easy bleeding All negative as above aside from that reported in the HPI and the following: right shoulder pain Right flank pain. Increased right flank pain with deep inspiration. No tingling numbness distal paresthesia or loss of motor function in the right upper extremity Physical Exam Vital Signs: Temp Pulse Resp BP Pulse Ox 97.8 F 96 20 117/35 L 91 L 12/23/19 11:01 12/23/19 11:01 12/23/19 11:01 12/23/19 11:01 12/23/19 11:01 Pulse Oximeter Nocturnal Start: 12/19/19 13:55 Freq: RTQ4 Status: Complete Protocol: Document 12/20/19 07:17 CMI (Rec: 12/20/19 07:17 CMI [id number]) Nocturnal Pulse Oximetry Equipment Usage Equipment Discontinued Continuous SpO2 Machine # 3 Intake & Output 12/22/19 12/23/19 12/24/19 06:59 06:59 06:59 Intake Total 230 840 230 Balance 230 840 230 Weight 92.7 kg 89.4 kg Results Laboratory Results: 12/23/19 05:53 12/23/19 05:53 12/23/19 12/23/19 05:53 05:53 WBC 2.5 L RBC 3.18 L Hgb 9.9 L Hct 29.3 L MCV 92 MCH 31.0 MCHC 33.7 RDW 14.6 H Plt Count 89 L Seg Neutrophils % 52.2 Sodium 139.9 Potassium 4.0 Chloride 114 H Carbon Dioxide 21 L Anion Gap 5 BUN 16 Creatinine 1.21 Est GFR ( Amer) 54 L Glucose 115 H Calcium 9.3 Magnesium 1.9 Total Bilirubin 0.8 AST 47 H Alkaline Phosphatase 98 Total Protein 5.4 L Albumin 2.7 L 12/16/19 12/16/19 12/16/19 04:25 04:25 11:19 Creatine Kinase 35 Troponin I 0.015 < 0.012 12/16/19 16:30 Creatine Kinase Troponin I < 0.012 Impressions: Lumbar Spine CT 12/16/19 01:14 IMPRESSION: Age-indeterminate compression fractures of T11, T12, L1, L2, L3, L5. No retropulsed fracture fragment or CT evidence for significant central canal stenosis. 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 TECHNICAL DOCUMENTATION: Quality ID # 436: Final reports with documentation of one or more dose reduction techniques (e.g., Automated exposure control, adjustment of the mA and/or kV according to patient size, use of iterative reconstruction technique) copyright 2011 [employer]- All Rights Reserved Abdomen Ultrasound 12/18/19 00:00 IMPRESSION: Limited evaluation of abdominal structures. Decreased liver size and mild nodular contour compatible with cirrhosis. Spl enomegaly. Bilateral pleural effusions. Medical renal disease. Head MRI 12/21/19 00:00 IMPRESSION: 1. Brain without acute findings. Mild cortical atrophy. 2. Partially visualized nasopharyngeal cavity structure more likely not significant. Ribs w/Chest X-Ray 12/21/19 00:00 IMPRESSION: No definite rib fracture identified. Patchy left basilar opacity. Consider atelectasis or pneumonia to include aspiration. In addition, there may be a trace left pleural effusion. copyright 2010 [employer]- All Rights Reserved Shoulder X-Ray 12/21/19 00:00 IMPRESSION: Questionable nondisplaced fracture involving the surgical neck of the humerus. Correlate for recent trauma. Mild AC joint arthrosis. copyright 2011 [employer]- All Rights Reserved Assessment & Plan - Diagnosis (1) Fracture of proximal end of right humerus Plan: Upon review of images, the right proximal humerus fracture appears to be subacute. It is in an excellent position for functional healing. Fracture of the surgical neck that is relatively nondisplaced. Encouraged pendulum exercises. She is to follow-up with me in the office in approximately 4 to 6 weeks for reevaluation. Until that time she should not limit her weightbearing right upper extremity to 5 pounds. Encouraged physical therapy to do do full passive range of motion at this time. No other intervention needed, no sling needed. Upon reviewing chest and rib films I do not appreciate rib fractures. Courage deep inspiration exercises
--- NOTE | 2019-12-23 13:10 | PDOC DISCHARGE SUMMARY ---
Impression - Admit/DC Date/PCP Admission Date/Primary Care Provider: 12/16/19 11:48 Discharge Date: 12/23/19 - Discharge Diagnosis (1) Hepatic encephalopathy Is this a current diagnosis for this admission?: Yes (2) Hyperglycemia due to type 2 diabetes mellitus Is this a current diagnosis for this admission?: Yes (3) Hypokalemia Is this a current diagnosis for this admission?: Yes (4) Pancytopenia Is this a current diagnosis for this admission?: Yes (5) Thrombocytopenia Is this a current diagnosis for this admission?: Yes (6) Leukopenia Is this a current diagnosis for this admission?: Yes (7) Anemia Is this a current diagnosis for this admission?: Yes (8) Chronic renal failure, stage 3 (moderate) Is this a current diagnosis for this admission?: No (9) Abnormal EEG Is this a current diagnosis for this admission?: Yes (10) Nonalcoholic steatohepatitis (REEVES) Is this a current diagnosis for this admission?: Yes (11) Ingrown toenail of right foot Is this a current diagnosis for this admission?: No (12) Abnormal gait Is this a current diagnosis for this admission?: Yes (13) Positive blood culture Is this a current diagnosis for this admission?: Yes (14) Left humeral fracture Is this a current diagnosis for this admission?: No - Assessment Summary: (1) Hepatic encephalopathy Is this a current diagnosis for this admission?: Yes Plan: Lactulose 10 mg p.o. every 8 hours. Supportive measures. Discharge planning is likely unable to return to independent setting. 12/17/2019 Ammonia level is down to 18. We will decrease the lactulose but not discontinue altogether. 12/18/2019 Concern is for long-term adverse effects of her encephalopathy. She is is not engage well at the bedside. She cannot tell me the month but could not tell me where she was, that I was her physician or the day of the week. CT scan of the head recently showed microvascular changes. There could be a degree of dementia with this but it is difficult to determine. 12/19/2019 I spoke to the patient's daughter. She confirms no history of alcohol. The patient was in the emergency department on December 14 and her ammonia level was 70. On the day of admission she was down to 38 and has subsequently normalized. Normally I would have expected her to perk up and be more interactive but she has not. This could all be cirrhosis however I will check a cortisol level. Her TSH was normal. Am going to institute a short trial of Ritalin twice daily and decrease her Prozac. I would like to phase in a different antidepressant. Her daughter did confirm that she feels that she has been quite depressed for some time now. 12/20/2019 the patient's ammonia level was back in the normal range. She is oriented to person and does not seem to be completely comprehending all of what is going on. He strengthens while she was eating lunch and I was talking to her it is almost childlike the way she focused on her food did not participate in the conversation. 12/21/2019-patient is alert awake communicating well. Not in distress. Comfortably in the bed. EEG is abnormal plan is to arrange for the MRI without contrast today. Patient admitted with altered mental status most likely secondary to hepatic and careful apathy ammonia levels are back to normal. 12/22/19-patient admitted with hepatic encephalopathy which is resolving. This morning alert and awake communicating well. EEG is abnormal but MRI of the brain without any stroke. 12/23/2019-altered mental status resolved. Acute metabolic encephalopathy secondary to liver failure resolving. Patient is going home on p.o. lactulose. 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 I have cut way back on her insulin. She is now mostly between 150 and 200. Her daughter did ask if I felt she was on too much insulin previously. It is hard to know because we are not aware of her dietary compliance at home as well as her appetite. Her appetite is decreased here. I will slowly increase long- acting insulin. For this patient a reasonable goal will be 125-150. 12/20/2019 Continue current regimen. Adequate control. 12/21/19-blood sugar today is 123. Stable. Plan is to consult continue insulin sliding scale before meals and at bedtime. It is receiving Lantus 8 units subcu daily. Check for hemoglobin A1c. 12/22/2019-latest blood sugar is 130, hemoglobin A1c is 4.1. Plan is to discontinue Lantus from today. To continue insulin sliding scale before meals and at bedtime. 12/23/2019-blood sugar today is 189, hemoglobin A1c is 4.1. Diabetic medications are on hold discussed the plan with the patient's daughter Lawanda recommended to take the patient to primary care physician in 1 to 2 weeks for repeat lab work and a further management of the diabetes. (3) Hypokalemia Is this a current diagnosis for this admission?: Yes Plan: 12/17/2019 Potassium is 3.5. I will administer 20 mEq IV and increase her oral dose to 20 mEq. Continue to monitor serum potassium levels. 12/18/2019 Continue current regimen of 20 mg orally daily. Hopefully this will keep her in the normal range. 12/19/2019 Potassium normal today. We will continue to monitor with blood work. 12/20/2019 Continue potassium supplementation 12/21/19-serum potassium today is 3.8 hypokalemia is resolving. 12/22/2019-serum potassium today 3.7 hypokalemia is resolved. (4) Pancytopenia Is this a current diagnosis for this admission?: Yes Plan: 12/17/2019 The patient also has anemia. With all 3 cell lines depleted she in fact is pancytopenic. This is most likely from her REEVES. I will discuss with hematology as well. 12/18/2019 White blood cell count is now normal. Patient is no longer pancytopenic she remains a thrombocytopenia and anemia. 12/19/[address] Virk's input. This may all be related to her cirrhosis. We will continue to monitor her CBC. 12/20/2019 Per hematology there is little intervention as this is related to her chronic progressive liver disease 12/21/2019-WBC count is 2.4 along with hemoglobin of 3.6 and a platelet count of 72. Numbers are stable. Is to recheck the labs tomorrow. 12/22/2019-WBC count is 2200 stable. Platelet count is 75,000 slightly improved. 1820-WBC count is 2500, platelet count of 89,000, hemoglobin 9.9. Pancytopenia may be secondary to medications. Hematology consult was done during the hospital stay no specific recommendations were made. (5) Thrombocytopenia Is this a current diagnosis for this admission?: Yes Plan: Anticipated secondary to Reeves and without complication, supportive care 12/17/2019 Platelet count has dropped. I have discontinued the DVT prophylaxis dose of heparin. Monitor platelets. 12/18/2019 Platelet counts are in the 80s today up from 66. We will continue to monitor. 12/19/2019 Platelet count decreased again today. We will continue to monitor. Please also see above 12/20/2019 Platelets continue to decline 12/21/19-platelet count is 72,000 today. [place]proved from [id number]. 12/22/2019-platelet count is 75,000 shows slight improvement. 12/23/2019-platelet count is 89,000 today gradually improving. (6) Leukopenia Qualifiers: Leukopenia type: neutropenia Is this a current diagnosis for this admission?: Yes Plan: 12/17/2019 The white blood cell count dropped. The patient is on ceftriaxone. We will monitor it closely. It could be the patient's initial response to infection. One blood culture bottle has coagulase-negative staph. 12/18/2019 White blood cell count is back in the normal range. And going to add ciprofloxacin and metronidazole for possible SBP. Correction of above. Patient was not on ceftriaxone. 12/19/2019 Her white blood cell count dropped below 3.0 again today. I did start her on antibiotics for possible spontaneous bacterial peritonitis. There is no significant ascites. She had one blood culture bottle positive for coagulase- negative staph which is likely a contaminant. I will recheck a CBC. If her white blood cell count continues to go lower I will change her antibiotic therapy. If it begins to recover I will likely keep the current antibiotics for several more days and reassess. 12/20/2019 Still at 2.5. 12/21/19-WBC count is 2400. 12/22/2019-WBC count is 2200 today. 12/23/2019-WBC count is 2300 improved compared to yesterday. (7) Anemia Qualifiers: Anemia type: other cause Other causes of anemia: chronic disease, other Qualified Code(s): D63.8 - Anemia in other chronic diseases classified elsewhere Is this a current diagnosis for this admission?: Yes Plan: 12/18/2019 The patient's white blood cell count has rebounded however she still remains anemic. This likely chronic and due to her liver disease. Hematology will be seeing her today and I await Dr. Virk's thoughts.. 12/19/2019 Hemoglobin has fallen again and is back to 10.2. Please also see hematology consult. Her pancytopenia is likely related to her liver disease. 12/20/2019 Hemoglobin is now 9.0. We will continue to monitor. Unfortunately this is likely due to her chronic progressive liver disease 12/21/19-hemoglobin today's 9.6. Stable. 12/22/2019-hemoglobin is 9.5 stable. 12/23/19-hemoglobin today is 9.9 improved from 9.5 yesterday. (8) Chronic renal failure, stage 3 (moderate) Is this a current diagnosis for this admission?: No Plan: 12/17/2019 Reviewing previous blood work it appears that the patient is at her baseline. Will decrease IV fluids. Will monitor renal function regularly. 12/18/2019 The patient's renal function is in fact stage IV at this time. We will continue to monitor closely, avoid nephrotoxic medications if possible and adjust other medications accordingly. 12/19/2019 Her renal function is improved. She in fact is slightly better than her recent baseline. We will continue current management and monitor her function. She is urinating but she is incontinent and so it is difficult to monitor. I would rather not place a Skelton catheter at this time. 12/20/2019 Kidney function continues to slowly improve 12/21/2019-serum creatinine today is 1.23. Stable. 12/22/2019-serum creatinine is 1.1 improving. 12/23/2019-serum creatinine today is 1.2 stable. Acute kidney injury is resolved. (9) Abnormal EEG Is this a current diagnosis for this admission?: Yes Plan: 12/20/2019 Patient with markedly abnormal EEG. Considering the constellation of pathology this may be difficult to treat. I will obtain an MRI study. 12/21/2019-patient is going for MRI of the brain without contrast today. 12/22/2019-MRI of the brain without contrast was done yesterday no acute pathology was seen. Patient alert awake communicating well this morning. 12/23/2019 MRI of the brain without contrast was done negative for acute pathology. (10) Nonalcoholic steatohepatitis (REEVES) Is this a current diagnosis for this admission?: Yes Plan: 12/17/2019 Supportive care at this point. 12/18/2019 I have ordered an abdominal ultrasound to get current imaging. 12/19/2019 No ascites but cirrhosis noted. I confirmed with patient's daughter that she was never a drinker. The progressing liver disease could be causing much of the abnormalities noted above. 12/20/2019 Patient may likely be in end-stage liver disease. (11) Ingrown toenail of right foot Is this a current diagnosis for this admission?: No (12) Abnormal gait Is this a current diagnosis for this admission?: Yes Plan: 12/17/2019 Evidently the patient has had falls. The most recent apparently was her throwin g herself out of the wheelchair. I have asked physical therapy to evaluate the patient. 12/18/2019 Await physical therapy's evaluation 12/19/2019 The patient is quite weak. She did participate with physical therapy earlier. She will benefit from ongoing treatment. 12/20/2019 Physical therapy 12/22/19-discussed the plan of care with the patient's daughter Lawanda she is requesting discharge home with home health when the patient is stable. 12/23/2019 patient is going home with home health/OT and nursing services. (13) Positive blood culture Is this a current diagnosis for this admission?: Yes Plan: 12/22/2019-blood cultures are positive for Staphylococcus capitis and Peptostreptococcus. Presently on ceftriaxone. Plan is to continue the antibiotic therapy for another 48 hours. 12/23/2019-patient is going home on clindamycin 300 mg p.o. 3 times daily for 5 days. Afebrile blood pressure stable WBC count is 2100. (14) Left humeral fracture Is this a current diagnosis for this admission?: No Plan: 12/22/2019-x-rays of the left shoulder was done yesterday shows questionable left surgical neck fracture consultation with Dr. Trinh was requested. He is going to see the patient today. 12/23/2019-seen by Dr. Trinh during the hospital stay is going to see the patient in his office in 2 weeks time for further management. - Additional Information Resuscitation Status: Full Code Discharge Diet: Diabetic Discharge Activity: Activity As Tolerated Referrals: STEVE GARNER PA-C [NO LOCAL MD] - 12/30/19 1:00 pm (This will be a virtual visit per [facility]. Call prior to appointment for explanation of process. ) Prescriptions: Lactulose [Cephulac Syrup 20 gm/30 ml Udcup] 10 gm PO BID 30 Days #60 gm Clindamycin HCl 300 mg PO Q8 5 Days #15 capsule Methylphenidate HCl [Ritalin 5 mg Tablet] 5 mg PO BID@0800,1400 30 Days #60 tablet Home Medications: Atorvastatin Calcium [Lipitor 10 mg Tablet] 10 mg PO QHS 12/15/19 Fluoxetine HCl 40 mg PO DAILY 12/15/19 Furosemide [Lasix] 20 mg PO DAILY 12/15/19 Gabapentin 600 mg PO BID 12/15/19 Insulin Glargine,Hum.rec.anlog [Lantus Insulin 100 Unit/mL Insulin Pen] 70 units SUBCUT QHS 12/15/19 Lisinopril [Prinivil] 10 mg PO DAILY 12/15/19 Meclizine HCl 50 mg PO BID 12/15/19 Pantoprazole Sodium 40 mg PO DAILY 12/15/19 Potassium Chloride [Klor-Con 10 Meq Tablet ER] 10 meq PO DAILY 12/15/19 Tolterodine Tartrate [Detrol] 2 mg PO DAILY 12/15/19 Verapamil HCl [Verapamil ER] 180 mg PO DAILY 12/15/19 Clindamycin HCl 300 mg PO Q8 5 Days #15 capsule 12/23/19 Lactulose [Cephulac Syrup 20 gm/30 ml Udcup] 10 gm PO BID 30 Days #60 gm 12/23/19 Methylphenidate HCl [Ritalin 5 mg Tablet] 5 mg PO BID@0800,1400 30 Days #60 tablet 12/23/19 History of Present Illiness History of Present Illness: MAG ARGUETA is a 64 year old female 64 year old female with a past medical history of diabetes, stage III CKD, hepatic cirrhosis secondary to Reeves, depression, recurrent hepatic encephalopathy, gait disorder and morbid obesity. She presents with 48 hours of confusion including hallucinations and delusion of persecution. She threw herself from her chair to the floor in an attempt to escape perceived capture. In the emergency department she is found to have persistent confusion and delusion, thrombocytopenia and CKD at baseline. She received lactulose and referred to the hospitalist for admission. She is a poor historian unable to provide additional history. CT lumbar spine notable for several compression fractures of uncertain chronicity however patient denies back pain. Hospital Course Hospital Course: 64 year old female with a past medical history of diabetes, stage III CKD, hepatic cirrhosis secondary to Reeves, depression, recurrent hepatic encephalopathy, gait disorder and morbid obesity. She presents with 48 hours of confusion including hallucinations and delusion of persecution. She threw herself from her chair to the floor in an attempt to escape perceived capture. In the emergency department she is found to have persistent confusion and delusion, thrombocytopenia and CKD at baseline. She received lactulose and referred to the hospitalist for admission. She is a poor historian unable to provide additional history. CT lumbar spine notable for several compression fractures of uncertain chronicity however patient denies back pain. 12/21/2019-comfortably in the bed communicating reasonably. Not in distress. Complaining of right rib cage pain as per the patient she fell at home few weeks ago and pain is increasing from last night. To arrange for x-rays today. Plan is to do the MRI of the brain today because EEG is abnormal. once patient is stable plan is to discharge her home with home health. 12/22/2019-no acute events in the last 24 hours. Patient complaining of left- sided rib cage pain and left shoulder pain yesterday x-ray suggestive of questionable fracture in the surgical neck of the left humerus. I spoke to Dr. Trinh he thinks it is a wall fracture but is going to see the patient today anyway. Discussed the plan of care with patient's daughter Lawanda she wants to take her home once she is ready and requesting for home health services. 12/23/2019-no acute events in the last 24 hours. Afebrile. Receiving IV ceftriaxone for Peptostreptococcus in the cultures. WBC count is normal. Expressing desire to go home today. Physical Exam Vital Signs: Temp Pulse Resp BP Pulse Ox 97.8 F 96 20 117/35 L 91 L 12/23/19 11:01 12/23/19 11:01 12/23/19 11:01 12/23/19 11:01 12/23/19 11:01 Pulse Oximeter Nocturnal Start: 12/19/19 13:55 Freq: RTQ4 Status: Complete Protocol: Document 12/20/19 07:17 CMI (Rec: 12/20/19 07:17 CMI [id number]) Nocturnal Pulse Oximetry Equipment Usage Equipment Discontinued Continuous SpO2 Machine # 3 Intake & Output 12/22/19 12/23/19 12/24/19 06:59 06:59 06:59 Intake Total 230 840 230 Balance 230 840 230 Weight 92.7 kg 89.4 kg General appearance: PRESENT: no acute distress, obese Head exam: PRESENT: atraumatic Eye exam: PRESENT: PERRLA Mouth exam: PRESENT: moist, tongue midline Teeth exam: PRESENT: poor dentation Neck exam: ABSENT: carotid bruit, JVD, lymphadenopathy, thyromegaly Respiratory exam: PRESENT: decreased breath sounds Cardiovascular exam: PRESENT: RRR. ABSENT: diastolic murmur, rubs, systolic murmur GI/Abdominal exam: PRESENT: normal bowel sounds, soft. ABSENT: distended, guarding, mass, organolmegaly, rebound, tenderness Rectal exam: PRESENT: deferred Extremities exam: PRESENT: full ROM. ABSENT: calf tenderness, clubbing, pedal edema Neurological exam: PRESENT: alert, awake, oriented to person, oriented to place, oriented to time, oriented to situation, CN II-XII grossly intact. ABSENT: motor sensory deficit Psychiatric exam: PRESENT: appropriate affect, normal mood. ABSENT: homicidal ideation, suicidal ideation Skin exam: PRESENT: dry, intact, warm. ABSENT: cyanosis, rash Results Laboratory Results: WBC 2.5 10^3/uL (4.0-10.5) L 12/23/19 05:53 RBC 3.18 10^6/uL (3.72-5.28) L 12/23/19 05:53 Hgb 9.9 g/dL (12.0-15.5) L 12/23/19 05:53 Hct 29.3 % (36.0-47.0) L 12/23/19 05:53 MCV 92 fl (80-97) 12/23/19 05:53 MCH 31.0 pg (27.0-33.4) 12/23/19 05:53 MCHC 33.7 g/dL (32.0-36.0) 12/23/19 05:53 RDW 14.6 % (11.5-14.0) H 12/23/19 05:53 Plt Count 89 10^3/uL (150-450) L 12/23/19 05:53 Lymph % (Auto) 36.0 % (13-45) 12/23/19 05:53 Preble % (Auto) 7.5 % (3-13) 12/23/19 05:53 Eos % (Auto) 3.7 % (0-6) 12/23/19 05:53 Baso % (Auto) 0.6 % (0-2) 12/23/19 05:53 Absolute Neuts (auto) 1.3 10^3/uL (1.7-8.2) L 12/23/19 05:53 Absolute Lymphs (auto) 0.9 10^3/uL (0.5-4.7) 12/23/19 05:53 Absolute Monos (auto) 0.2 10^3/uL (0.1-1.4) 12/23/19 05:53 Absolute Eos (auto) 0.1 10^3/uL (0.0-0.6) 12/23/19 05:53 Absolute Basos (auto) 0.0 10^3/uL (0.0-0.2) 12/23/19 05:53 Seg Neutrophils % 52.2 % (42-78) 12/23/19 05:53 Platelet Estimate Cancelled 12/17/19 06:30 PT 18.8 SEC (11.4-15.4) H 12/21/19 06:17 INR 1.56 12/21/19 06:17 APTT 38.0 SEC (23.5-35.8) H 12/21/19 06:17 Fibrinogen 396 mg/dL (209-497) 12/21/19 06:17 Sodium 139.9 mmol/L (137-145) 12/23/19 05:53 Potassium 4.0 mmol/L (3.6-5.0) 12/23/19 05:53 Chloride 114 mmol/L (98-107) H 12/23/19 05:53 Carbon Dioxide 21 mmol/L (22-30) L 12/23/19 05:53 Anion Gap 5 (5-19) 12/23/19 05:53 BUN 16 mg/dL (7-20) 12/23/19 05:53 Creatinine 1.21 mg/dL (0.52-1.25) 12/23/19 05:53 Est GFR ( Amer) 54 (>60) L 12/23/19 05:53 Est GFR (MDRD) Non-Af 45 (>60) L 12/23/19 05:53 Glucose 115 mg/dL (75-110) H 12/23/19 05:53 POC Glucose 189 mg/dL (70-110) H 12/23/19 11:01 Hemoglobin A1c % 4.1 % (4.7-6.0) L 12/21/19 06:17 Calcium 9.3 mg/dL (8.4-10.2) 12/23/19 05:53 Phosphorus 2.8 mg/dL (2.5-4.5) 12/20/19 05:28 Magnesium 1.9 mg/dL (1.6-2.3) 12/23/19 05:53 Total Bilirubin 0.8 mg/dL (0.2-1.3) 12/23/19 05:53 Direct Bilirubin 0.1 mg/dL (0.0-0.4) 12/23/19 05:53 Neonat Total Bilirubin Not Reportable 12/23/19 05:53 Neonat Direct Bilirubin Not Reportable 12/23/19 05:53 Neonat Indirect Bili Not Reportable 12/23/19 05:53 AST 47 U/L (14-36) H 12/23/19 05:53 ALT 24 U/L (<35) 12/23/19 05:53 Alkaline Phosphatase 98 U/L (38-126) 12/23/19 05:53 Ammonia 18.1 umol/L (9-33) 12/17/19 06:30 Creatine Kinase 35 U/L (30-135) 12/16/19 04:25 Troponin I < 0.012 ng/mL 12/16/19 16:30 Total Protein 5.4 g/dL (6.3-8.2) L 12/23/19 05:53 Albumin 2.7 g/dL (3.5-5.0) L 12/23/19 05:53 TSH 1.43 uIU/mL (0.47-4.68) 12/16/19 04:25 Cortisol AM Sample 12.30 ug/dL (4.46-22.7) 12/20/19 05:28 Urine Color YELLOW 12/16/19 04:10 Urine Appearance CLEAR 12/16/19 04:10 Urine pH 5.0 (5.0-9.0) 12/16/19 04:10 Ur Specific Shiro 1.011 12/16/19 04:10 Urine Protein NEGATIVE mg/dL (NEGATIVE) 12/16/19 04:10 Urine Glucose (UA) NEGATIVE mg/dL (NEGATIVE) 12/16/19 04:10 Urine Ketones NEGATIVE mg/dL (NEGATIVE) 12/16/19 04:10 Urine Blood NEGATIVE (NEGATIVE) 12/16/19 04:10 Urine Nitrite NEGATIVE (NEGATIVE) 12/16/19 04:10 Urine Bilirubin NEGATIVE (NEGATIVE) 12/16/19 04:10 Urine Urobilinogen 2.0 mg/dL (<2.0) H 12/16/19 04:10 Ur Leukocyte Esterase NEGATIVE (NEGATIVE) 12/16/19 04:10 Urine WBC (Auto) 0 /HPF 12/16/19 04:10 Urine RBC (Auto) 0 /HPF 12/16/19 04:10 U Hyaline Cast (Auto) 1 /LPF 12/16/19 04:10 Urine Mucus (Auto) RARE /LPF 12/16/19 04:10 Urine Ascorbic Acid NEGATIVE (NEGATIVE) 12/16/19 04:10 Slides for Path Review Cancelled 12/17/19 06:30 12/16/19 12/16/19 12/16/19 04:25 11:19 16:30 Troponin I 0.015 < 0.012 < 0.012 Impressions: Lumbar Spine CT 12/16/19 01:14 IMPRESSION: Age-indeterminate compression fractures of T11, T12, L1, L2, L3, L5. No retropulsed fracture fragment or CT evidence for significant central canal stenosis. 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 TECHNICAL DOCUMENTATION: Quality ID # [id number]: Final reports with documentation of one or more dose reduction techniques (e.g., Automated exposure control, adjustment of the mA and/or kV according to patient size, use of iterative reconstruction technique) copyright 2011 [employer]- All Rights Reserved Abdomen Ultrasound 12/18/19 00:00 IMPRESSION: Limited evaluation of abdominal structures. Decreased liver size and mild nodular contour compatible with cirrhosis. Splenomegaly. Bilateral pleural effusions. Medical renal disease. Head MRI 12/21/19 00:00 IMPRESSION: 1. Brain without acute findings. Mild cortical atrophy. 2. Partially visualized nasopharyngeal cavity structure more likely not significant. Ribs w/Chest X-Ray 12/21/19 00:00 IMPRESSION: No definite rib fracture identified. Patchy left basilar opacity. Consider atelectasis or pneumonia to include aspiration. In addition, there may be a trace left pleural effusion. copyright 2010 [employer]- All Rights Reserved Shoulder X-Ray 12/21/19 00:00 IMPRESSION: Questionable nondisplaced fracture involving the surgical neck of the humerus. Correlate for recent trauma. Mild AC joint arthrosis. copyright 2010 [employer]- All Rights Reserved Plan Plan of Treatment: Patient is going home with home health. OT and nursing is also requested. Time Spent: Greater than 30 Minutes Stroke Is this a Stroke Patient?: No Acute Heart Failure - Is this a Heart Failure Patient?: No
[2019-12-23] MEDS ORDERED: CLINDAMYCIN HCL 150 MG CAPSULE PO SCH (14:00)
[2019-12-23 17:02] VITALS: BP 132/68
== END 2019-12-23 18:13 | disposition home health service (06) | DRG 442 ==
LOC: ER 22:45 → EH 12-16 02:24 → UNDOADMOB 12-16 02:24 → EH 12-16 04:19 → 3S 12-16 07:06 → OBSVTOIN 12-16 11:48
PROVIDERS: ADMIT Internal Medicine; ATTEND Internal Medicine
DX: K72.90 Hepatic failure, unspecified without coma (principal); S42.201A Unspecified fracture of upper end of right humerus, initial encounter for closed fracture; N39.0 Urinary tract infection, site not specified; D61.818 Other pancytopenia; K74.60 Unspecified cirrhosis of liver; K75.81 Nonalcoholic steatohepatitis (NASH); I12.9 Hypertensive chronic kidney disease with stage 1 through stage 4 chronic kidney disease, or unspecified chronic kidney disease; D69.6 Thrombocytopenia, unspecified; D63.8 Anemia in other chronic diseases classified elsewhere; E87.6 Hypokalemia; E78.00 Pure hypercholesterolemia, unspecified; E11.22 Type 2 diabetes mellitus with diabetic chronic kidney disease; N18.3 Chronic kidney disease, stage 3 (moderate); L60.0 Ingrowing nail; R26.9 Unspecified abnormalities of gait and mobility; W18.39XA Other fall on same level, initial encounter; Y93.89 Activity, other specified; Y92.89 Other specified places as the place of occurrence of the external cause; Z79.4 Long term (current) use of insulin; Z79.899 Other long term (current) drug therapy
CPT/HCPCS: 36415; 70450; 70551; 72131; 76700; 80048; 80053; 80069; 80307; 81001; 82140; 82533; 82550; 82962; 83036; 83735; 84100; 84443; 84484; 85025; 85384; 85610; 85730; 87040; 87077; 87150; 87186; 93005; 93010; 93976; 94762; 95819; 96365; 96366; 99284; G0378; J0696; J0744; J1644; J1815; J2405; J3475; J3480; J3490; J7030; P9047